=== PATIENT | female | born 1980 | race Caucasian/White ===

== ENCOUNTER 2017-03-18 20:28 | Inpatient (IN) | payer OTHER ==
[~2017-03-18] VITALS: Ht 157.5 cm; Wt 68.5 kg
[~2017-03-18 20:28] MED LIST: CIPR500T4 PO; FLUC150T41 PO; ONDA4TAB8 PO; PEG1POWD PO; PERCOCET PO; POLY17PO6 PO
--- NOTE | 2017-03-18 23:24 | ERA ---
ER Documentation Chief Complaint Date/Time DATE: 03/18/17 TIME: 23:23 Chief Complaint abdominal pain HPI The patient is a 36-year-old female, presenting with chronic bloody stool for more than 2 months, bloody stool for 2 days, associated with dysuria for 2 days. She had history of cervical cancer and treated with hysterectomy on May 2016. She is saw her oncologist 10 days ago and was diagnosed with recurrent cancer and sees is awaiting further evaluation including radiation therapy. She denies fever, chills, neck pain, chest pain, diarrhea, constipation. She does not smoke nor drink Past medical history: History of cervical cancer Past surgical history: Hysterectomy and ROS All systems reviewed and are negative except as per history of present illness. Medications Home Meds Reported Medications Ibuprofen* (Advil*) 200 Mg Capsule, 200 MG PO Q6H Y for PAIN, CAP 03/19/17 Discontinued Reported Medications Ciprofloxacin Hcl* (Ciprofloxacin Hcl*) 500 Mg Tablet, 500 MG PO BID, #14 TAB PER PT STARTED 05-07-16 05/07/16 Oxycodone Hcl/Acetaminophen (Percocet) 1 Tab Tab, 1 TAB PO DAILY for SEVERE PAIN LEVEL 7-10, TAB 05/07/16 Discontinued Scripts Ondansetron Hcl* (Zofran*) 4 Mg Tablet, 4 MG PO Q8H Y for NAUSEA AND/OR VOMITING , #30 TAB Prov:MOHINDER SANON MD 05/09/16 Peg 3350/Na Sulf,Bicarb,Cl/KCl (Golytely Packet) 1 Each Powd.pack, 1 EACH PO DAILY for CONSTIPATION, #1 BOX Prov:MOHINDER SANON MD 05/09/16 Polyethylene Glycol* (Miralax*) 17 Gm Powd.pack, 17 GM PO DAILY for CONSTIPATION , #7 Prov:MOHINDER SANON MD 05/09/16 Fluconazole* (Fluconazole*) 150 Mg Tablet, 150 MG PO DAILY, #2 TAB Prov:CAROL KEBEDE PA-C 03/04/15 Allergies Allergies: Coded Allergies: No Known Allergies (Unverified Allergy, Unknown, 03/19/17) PMhx/Soc History of Surgery: Yes (c/section x2, TUMMY TUCK 2009, HYSTERECTOMY 05/2016) Anesthesia Reaction: No Hx Neurological Disorder: No Hx Respiratory Disorders: No Hx Cardiac Disorders: No Hx Psychiatric Problems: No Hx Miscellaneous Medical Probl: No Hx Alcohol Use: No Hx Substance Use: No Hx Tobacco Use: No Physical Exam Vitals Vital Signs Date Time Temp Pulse Resp B/P Pulse Ox O2 Delivery O2 Flow Rate FiO2 03/19/17 05:04 81 16 108/69 98 Room Air 03/19/17 03:00 89 20 97/73 97 Room Air 03/19/17 02:00 84 21 90/64 99 Room Air 03/19/17 01:00 84 22 92/76 100 Room Air 03/19/17 00:00 88 20 93/52 99 Room Air 03/18/17 23:24 98.4 92 18 96/66 100 Room Air 03/18/17 20:40 98.4 110 18 105/64 96 Physical Exam Const: No acute distress.Dehydrated Head: Atraumatic. Eyes: Normal Conjunctiva. ENT: Normal External Ears, Nose and Mouth. Neck: Full range of motion. No meningismus. Resp: Clear to auscultation bilaterally. Cardio: Regular Tachycardic Abd: Soft, non distended, normal bowel sounds, Diffuse abdominal tenderness, no rigidity, rebound, CVA tenderness Skin: No petechiae or rashes. Back: No midline or flank tenderness. Ext: No cyanosis, or edema. Neur: Awake and alert. No focal deficit Psych: Normal Mood and Affect. Result Diagram: 03/18/17 2335 03/18/17 2335 Results 24 hrs Laboratory Tests Test 03/18/17 23:35 03/19/17 00:21 White Blood Count 18.510^3/ul Red Blood Count 3.6210^6/ul Hemoglobin 10.3g/dl Hematocrit 32.3% Mean Corpuscular Volume 89.2fl Mean Corpuscular Hemoglobin 28.5pg Mean Corpuscular Hemoglobin Concent 31.9g/dl Red Cell Distribution Width 12.9% Platelet Count 97171^3/UL Mean Platelet Volume 9.4fl Neutrophils % 79.3% Lymphocytes % 11.8% Monocytes % 8.0% Eosinophils % 0.2% Basophils % 0.2% Nucleated Red Blood Cells % 0.0/100WBC Neutrophils # 14.610^3/ul Lymphocytes # 2.210^3/ul Monocytes # 1.510^3/ul Eosinophils # 0.010^3/ul Basophils # 0.010^3/ul Nucleated Red Blood Cells # 0.010^3/ul Prothrombin Time 15.7Sec Prothrombin Time Ratio 1.2 INR International Normalized Ratio 1.24 Activated Partial Thromboplast Time 34.1Sec Sodium Level 134mmol/L Potassium Level 3.3mmol/L Chloride Level 98mmol/L Carbon Dioxide Level 28mmol/L Anion Gap 11 Blood Urea Nitrogen 14mg/dl Creatinine 1.38mg/dl Glucose Level 156mg/dl Lactic Acid Level 1.4mmol/L Calcium Level 9.5mg/dl Total Bilirubin 0.7mg/dl Direct Bilirubin 0.00mg/dl Indirect Bilirubin 0.7mg/dl Aspartate Amino Transf (AST/SGOT) 22IU/L Alanine Aminotransferase (ALT/SGPT) 18IU/L Alkaline Phosphatase 71IU/L Total Protein 8.3g/dl Albumin 3.9g/dl Globulin 4.40g/dl Albumin/Globulin Ratio 0.88 Lipase 66U/L Bedside Urine pH (LAB) 5.5 Bedside Urine Protein (LAB) 3+ Bedside Urine Glucose (UA) Negative Bedside Urine Ketones (LAB) Negative Bedside Urine Blood 2+ Bedside Urine Nitrite (LAB) Negative Bedside Urine Leukocyte Esterase (L Negative Current Medications Medications (Trade) Dose Ordered Sig/Yuli Route PRN Reason Start Time Stop Time Status Last Admin Dose Admin Sodium Chloride (NS) 2,170 ml BOLUS OVER 2 HOURS STAT IV* 03/18/17 23:46 03/18/17 23:49 DC 03/19/17 00:02 Morphine Sulfate (morphine) 2 mg ONCE ONCE IV 03/19/17 00:00 03/19/17 00:01 DC 03/19/17 00:01 Ondansetron HCl (Zofran Inj) 4 mg ONCE STAT IV 03/18/17 23:46 03/18/17 23:49 DC 03/19/17 00:00 Morphine Sulfate (morphine) 2 mg ONCE ONCE IV 03/19/17 02:06 03/19/17 02:07 DC 03/19/17 02:30 Ondansetron HCl (Zofran Inj) 4 mg ONCE ONCE IV 03/19/17 02:06 03/19/17 02:07 DC 03/19/17 02:30 Potassium Chloride 20 meq 20 meq ONCE ONCE PO 03/19/17 03:26 03/19/17 03:27 DC 03/19/17 03:26 Piperacillin Sod/ Tazobactam Sod (Zosyn 3.375gm/ 100 ml (Pmx)) 100 ml @ 200 mls/hr ONCE ONCE IVPB 03/19/17 03:30 03/19/17 03:59 DC 03/19/17 03:30 Procedures/MDM [place] [address] Radiology Main Line: [phone] DIAGNOSTIC IMAGING REPORT Patient: LILI VINSON : 1980 Age: 36 Sex: F MR #: [id number] DOS: 03/18/172345 Ordering MD: SUSAN ZHAO MD Location: E/R Room/Bed: PROCEDURE: XR Chest. CLINICAL INDICATION: Possible sepsis TECHNIQUE: Single AP portable chest. COMPARISON: 16 Chest x-ray FINDINGS: The cardiomediastinal silhouette is within normal limits of size. The lungs are clear without pleural effusion or focal consolidation. No pneumothorax. The osseous structures and soft tissues are unremarkable. IMPRESSION: 1. No evidence for active cardiopulmonary disease. RPTAT:AAJJ Physician Evgeny Date Time Electronically viewed and signed by Physician Evgeny on 03/19/2017 00:20 HARVEY/ CC: SUSAN ZHAO MD [place] [address] Radiology Main Line: [phone] DIAGNOSTIC IMAGING REPORT Patient: LILI VINSON : 1980 Age: 36 Sex: F MR #: [id number] DOS: 03/18/172345 Ordering MD: SUSAN ZHAO MD Location: E/R Room/Bed: PROCEDURE: CT ABDOMEN/PELVIS WITHOUT CONTRAST CLINICAL INDICATION: 36-year-old female with abdominal pain and sepsis. TECHNIQUE: The study was performed utilizing a [employer] 64-slice CT scanner. Direct axial sections were obtained through the abdomen and pelvis without the use of intravenous contrast material. Sagittal and coronal reformations were obtained. One or more of the following dose reduction techniques were utilized: automated exposure control, adjustment of the mA and/ or kV according to patient's size or use of iterative reconstruction technique. The images were reviewed on a PACS workstation. CTD/vol = 12.6 mGy; Total Exam DLP = 725.6 mGy-cm. COMPARISON: CT abdomen/pelvis May 09, 2016. FINDINGS: There is minimal bibasilar subsegmental atelectasis. There is no evidence for significant pleural effusion. The liver has a normal size and contour without focal areas of abnormal density. No intrahepatic nor extrahepatic biliary ductal dilatation is seen. The gallbladder demonstrates no wall thickening nor pericholecystic fluid. No biliary stones are evident. The pancreas is without areas of abnormal attenuation. The spleen is identified and has a normal size without abnormal density. The adrenal glands are unremarkable. There is severe right-sided hydroureteronephrosis with markedly dilated ectatic right ureter with transition point in the distal right ureter without evidence for obstructing calculus. There is mild left-sided hydroureteronephrosis with transition point within the distal left ureter without evidence for obstructing calculus. There is a large ill-defined mass within the pelvis measuring approximately 10.2 x 9.4 x 8.6 cm. Note that the patient has had a prior hysterectomy. There is mild free fluid identified within the pelvis. The right ovary is displaced into the right lower quadrant. There appears to be a right ovarian cyst measuring approximately 1.7 x 2.0 x 2.2 cm. The urinary bladder contains urine and is displaced ventrally. There is no evidence for bowel obstruction. The rectosigmoid colon appears to be circumferentially thickened however this may be secondarily involved. The appendix is visualized and is without abnormal thickening or surrounding inflammatory reaction. The aortoiliac vessels are without aneurysmal dilatation. The osseous structures are intact. IMPRESSION: 1. Large ill-defined pelvic mass with free fluid. 2. Severe right and mild left-sided hydroureteronephrosis with markedly ectatic right ureter with obstruction in the distal ureters most likely from mass effect by the pelvic mass. 3. Right ovarian cyst. 4. Diffuse circumferential thickening of the rectosigmoid colon which may be secondarily involved. 5. No CT evidence for appendicitis. .Jose Atkins MD, Date Time Electronically viewed and signed by .Jose Atkins MD, MD on 03/19/2017 03:01 .M/ CC: SUSAN ZHAO MD EKG: Read by emergency physician Rate/Rhythm: Normal Sinus Rhythm 83 beats/min QRS, ST, T-waves: No ST elevation, no T inversion Impression: Normal EKG MEDICAL MAKING DECISION: Patient is a 36-year-old female, presenting with acute bilateral hydroureteronephrosis, acute pelvic mass most likely due to recurrent cervical cancer, acute hypokalemia, acute dehydration , acute renal sufficiency , acute hematuria, chronic hematochezia. She was treated with normal saline 30 mL/kg IV for acute dehydration, morphine 2 mg IV for pain 2 and Zofran 4 mg IV for nausea 2, potassium chloride 20 mEq p.o. and Zosyn IV empirically and Sheets catheter due to acute hydroureteronephrosis is likely due to acute recurrent pelvic mass The differential diagnoses considered include but are not limited to metastatic recurrent cervical cancer, cholelithiasis, cholecystitis, cystitis, pancreatitis , hepatitis, gastritis, peptic ulcer disease, gastric ulcer, appendicitis, diverticulitis, cholangitis, choledocholithiasis, partial small bowel obstruction, acute gastrointestinal bleeding Critical Care: Time: 35 minutes excluding all billable procedures. Treatments/Evaluations: Close monitoring and treatment of unstable vital signs, cardiorespiratory, and neurologic status, while maintaining tight balance of fluid, respiratory, and cardiac interventions.. Departure Diagnosis: Primary Impression: Hydroureteronephrosis Additional Impressions: Dehydration Pelvic mass Hypokalemia Renal insufficiency Hematochezia Hematuria Anemia Condition: Stable Comments Consultation: I discussed the patient with the on-call urologist Dr. sage at 3: 30 AM, he was made aware of the lab, the treatment, the patient condition and he accepted the consult I discussed the findings with the patient. I discussed the patient with his physician Dr. watson at 3:40 AM who was made aware of the lab, the treatment, the patient condition and my discussion with the urologist. The patient is admitted to [facility] MD Mar 18, 2017 23:24
[2017-03-18] MEDS ORDERED: SODIUM CHLORIDE 0.9% 1L BAG IV* STA (23:46)
[2017-03-18] MEDS ORDERED: ONDANSETRON 4 MG INJ IV STA (23:46)
[2017-03-19] MEDS ORDERED: morphine 2 MG INJ IV ONE
[2017-03-19] MEDS ORDERED: IBUP200C11 PO (00:03)
[2017-03-19 00:07] LABS: BASOPHILS % 0.2 % (0.0-2.0); EOSINOPHILS % 0.2 % (0.0-7.0); HEMATOCRIT 32.3 % (37.0-47.0); HEMOGLOBIN 10.3 g/dl (12.0-16.0); LYMPHOCYTES # 2.2 10^3/ul (0.8-2.9); LYMPHOCYTES % 11.8 % (15.0-51.0); MEAN CORPUSCULAR HEMOGLOBIN 28.5 pg (29.0-33.0); MEAN CORPUSCULAR HGB CONC 31.9 g/dl (32.0-37.0); MEAN CORPUSCULAR VOLUME 89.2 fl (82.0-101.0); MEAN PLATELET VOLUME 9.4 fl (7.4-10.4); MONOCYTE # 1.5 10^3/ul (0.3-0.9); NEUTROPHIL # 14.6 10^3/ul (1.6-7.5); NEUTROPHILS % 79.3 % (39.0-77.0); PLATELET COUNT 329 10^3/UL (140-415); RED BLOOD COUNT 3.62 10^6/ul (4.20-5.40); RED CELL DISTRIBUTION WIDTH 12.9 % (11.5-14.5); WHITE BLOOD COUNT 18.5 10^3/ul (4.8-10.8)
[2017-03-19 00:15] LABS: URINE BLOOD (Dip) POC 2+ (NEGATIVE)
--- NOTE | 2017-03-19 00:20 | RADRPT ---
PROCEDURE: XR Chest. CLINICAL INDICATION: Possible sepsis TECHNIQUE: Single AP portable chest. COMPARISON: 16 Chest x-ray FINDINGS: The cardiomediastinal silhouette is within normal limits of size. The lungs are clear without pleur al effusion or focal consolidation. No pneumothorax. The osseous structures and soft tissues are unr emarkable. IMPRESSION: 1. No evidence for active cardiopulmonary disease. RPTAT:AAJJ Marguerite Varma Physician Date Time Electronically viewed and signed by Marguerite Varma Physician on 03/19/2017 00:20 HARVEY/
[2017-03-19 00:27] LABS: ALBUMIN 3.9 g/dl (3.3-4.9); ALBUMIN/GLOBULIN RATIO 0.88; BILIRUBIN,INDIRECT 0.7 mg/dl (0-1.1); BILIRUBIN,TOTAL 0.7 mg/dl (0.2-1.3); CALCIUM 9.5 mg/dl (8.4-10.2); CREATININE 1.38 mg/dl (0.44-1.00); INR 1.24; PARTIAL THROMBOPLASTIN TIME 34.1 Sec (25.0-35.0); POTASSIUM 3.3 mmol/L (3.5-5.1); PROTIME 15.7 Sec (12.2-14.2); PT RATIO 1.2; TOTAL PROTEIN 8.3 g/dl (6.1-8.1)
[2017-03-19] MEDS ORDERED: morphine 4 MG/ML VIAL IV ONE (02:06)
[2017-03-19] MEDS ORDERED: ONDANSETRON 4 MG INJ IV ONE (02:06)
--- NOTE | 2017-03-19 03:01 | RADRPT ---
PROCEDURE: CT ABDOMEN/PELVIS WITHOUT CONTRAST CLINICAL INDICATION: 36-year-old female with abdominal pain and sepsis. TECHNIQUE: The study was performed utilizing a GE E[employer] E[employer]ed VCT 64-slice CT scanner. Direct axia l sections were obtained through the abdomen and pelvis without the use of intravenous contrast mate rial. Sagittal and coronal reformations were obtained. One or more of the following dose reduction t echniques were utilized: automated exposure control, adjustment of the mA and/or kV according to pat ient's size or use of iterative reconstruction technique. The images were reviewed on a PACS workst [employer]. CTD/vol = 12.6 mGy; Total Exam DLP = 725.6 mGy-cm. COMPARISON: CT abdomen/pelvis May 09, 2016. FINDINGS: There is minimal bibasilar subsegmental atelectasis. There is no evidence for significant pleural ef fusion. The liver has a normal size and contour without focal areas of abnormal density. No intrahe patic nor extrahepatic biliary ductal dilatation is seen. The gallbladder demonstrates no wall thick ening nor pericholecystic fluid. No biliary stones are evident. The pancreas is without areas of abn ormal attenuation. The spleen is identified and has a normal size without abnormal density. The adr enal glands are unremarkable. There is severe right-sided hydroureteronephrosis with markedly dilate d ectatic right ureter with transition point in the distal right ureter without evidence for obstruc ting calculus. There is mild left-sided hydroureteronephrosis with transition point within the dista l left ureter without evidence for obstructing calculus. There is a large ill-defined mass within th e pelvis measuring approximately 10.2 x 9.4 x 8.6 cm. Note that the patient has had a prior hysterectomy. There is mild free fluid identified within the pelvis. The right ovary is displaced in to the right lower quadrant. There appears to be a right ovarian cyst measuring approximately 1.7 x 2.0 x 2.2 cm. The urinary bladder contains urine and is displaced ventrally. There is no evidence fo r bowel obstruction. The rectosigmoid colon appears to be circumferentially thickened however this m ay be secondarily involved. The appendix is visualized and is without abnormal thickening or surrou nding inflammatory reaction. The aortoiliac vessels are without aneurysmal dilatation. The osseous s tructures are intact. IMPRESSION: 1. Large ill-defined pelvic mass with free fluid. 2. Severe right and mild left-sided hydroureteronephrosis with markedly ectatic right ureter with o bstruction in the distal ureters most likely from mass effect by the pelvic mass. 3. Right ovarian cyst. 4. Diffuse circumferential thickening of the rectosigmoid colon which may be secondarily involved. 5. No CT evidence for appendicitis. .Jose Atkins MD, MD Date Time Electronically viewed and signed by .Jose Atkins MD, MD on 03/19/2017 03:01 .Merry/
[2017-03-19] MEDS ORDERED: POTASSIUM CHLORIDE (SR) 20 MEQ TAB PO ONE (03:26)
[2017-03-19] MEDS ORDERED: PIPER-TAZO 3.375 GM IV (PMX) 100 ML IVPB ONE (03:30)
[2017-03-19] MEDS ORDERED: HYDROmorphONE 1 MG/ML SYG IV STA (09:49)
[2017-03-19 13:00] VITALS: TEMP 98.4
[2017-03-19 14:15] VITALS: BP 100/59; PULSE 68; RESP 18
[2017-03-19] MEDS ORDERED: ACETAMINOPHEN 650 MG SUPP PR PRN (15:30)
[2017-03-19] MEDS ORDERED: MAGNESIUM HYDROXIDE 30ML CUP PO PRN (15:30)
[2017-03-19] MEDS ORDERED: ACETAMINOPHEN 325 MG TAB PO PRN (15:30)
[2017-03-19] MEDS ORDERED: BISACODYL (EC) 5 MG TAB PO PRN (15:30)
[2017-03-19] MEDS ORDERED: ONDANSETRON 4 MG INJ IV PRN (15:30)
[2017-03-19] MEDS ORDERED: NACL 0.9% 3 ML SYG IV SCH (15:30)
[2017-03-19] MEDS ORDERED: IBUPROFEN 200 MG TAB PO PRN (15:30)
[2017-03-19] MEDS ORDERED: DOCUSATE SODIUM 100 MG CAP PO PRN (15:30)
[2017-03-19] MEDS ORDERED: ZOLPIDEM 5 MG TAB PO PRN (15:30)
--- NOTE | 2017-03-19 15:37 | QN ---
Documentation Comment [id number] KIMBERLY PARK MD Mar 19, 2017 15:37
[2017-03-19] MEDS: DEXTROSE 5%-0.45% NACL 1,000 ML IV SCH (15:41)
[2017-03-19] MEDS: CEFTRIAXONE 1 GM/50 ML (PMX) 50 ML IVPB SCH (17:42)
[2017-03-19 19:02] VITALS: Ht 157.5 cm; Wt 68.5 kg
[2017-03-19 19:48] VITALS: BP 99/61; PULSE 81; RESP 18
--- NOTE | 2017-03-19 22:29 | HP ---
DATE OF ADMISSION: 03/19/2017 HISTORY OF PRESENT ILLNESS: Michelle Gross is a 36-year-old female with history of cervical cancer status post surgery in the past, now presents to this hospital complaining of difficulty passing urine and some burning and pain. Patient's blood pressure 130/83 in the ER. WBC 18.5, hematocrit 32.3. Sodium 134, potassium 3.3, creatinine 1.38. Patient had urine 2+. Chest x-ray done in the ER shows no evidence of active cardiopulmonary disease. CT of the abdomen and pelvis shows a large ill-defined pelvic mass with free fluid. Severe right and mild left-sided hydronephrosis with markedly atretic right ureter with obstruction in the distal ureter most likely from mass effect by the pelvic mass. Right ovarian cyst. Diffuse circumferential thickening of the rectosigmoid which may be secondarily involved. No CT evidence for appendicitis. PAST MEDICAL HISTORY: Positive for cervical CA status post surgery. PAST SURGICAL HISTORY: Status post surgery. ALLERGIES: NEGATIVE. FAMILY HISTORY: Negative. SOCIAL HISTORY: Negative. MEDICATIONS: Ibuprofen. REVIEW OF SYSTEMS: HEENT: Unremarkable. RESPIRATORY: Unremarkable. CARDIOVASCULAR: Unremarkable. ABDOMEN: As mentioned, lower abdominal pain. No nausea, vomiting. No diarrhea. No hematemesis, melena. EXTREMITIES: No swelling. DEPUTY PROGRAM MANAGER: As mentioned above. No vaginal discharge. PHYSICAL EXAMINATION: GENERAL: Patient is awake, alert. VITAL SIGNS: Pulse 90, blood pressure 130/83. HEENT: Head is atraumatic, normocephalic. Pupils equal, reactive to light. NECK: Supple. There is no JVD. LUNGS: Clear. CARDIAC: S1, S2 normal. ABDOMEN: Soft. Bowel sounds positive. Tenderness in the lower abdominal area noted on deep palpation. EXTREMITIES: No cyanosis, clubbing, edema. LABORATORY DATA: As mentioned above. IMPRESSION: 1. Patient has pelvic mass. 2. Leukocytosis. 3. Right and mild left-sided hydroureteronephrosis. 4. Hypokalemia. 5. Acute kidney injury. 6. Hyponatremia. 7. Anemia. PLAN: DEPUTY PROGRAM MANAGER consultation, urology consultation. IV fluids, PPI, pain medication, and DVT prophylaxis, antibiotics empiric, potassium supplementation. Patient's pain medication orders were done. Dictated By: Guido Fregoso MD /[email or web address] /Document#: [id number]
[2017-03-19] MEDS: morphine 2 MG INJ IV PRN (23:26)
[2017-03-20 02:32] VITALS: BP 90/96; RESP 20
[2017-03-20] MEDS: DEXTROSE 5%-0.45% NACL 1,000 ML IV SCH (05:51)
[2017-03-20] MEDS ORDERED: PANTOPRAZOLE 40 MG INJ IV SCH (06:00)
[2017-03-20 06:17] LABS: BASOPHILS % 0.2 % (0.0-2.0); EOSINOPHILS # 0.3 10^3/ul (0.0-0.5); EOSINOPHILS % 2.6 % (0.0-7.0); HEMATOCRIT 27.7 % (37.0-47.0); HEMOGLOBIN 8.8 g/dl (12.0-16.0); LYMPHOCYTES # 2.2 10^3/ul (0.8-2.9); LYMPHOCYTES % 17.4 % (15.0-51.0); MEAN CORPUSCULAR HEMOGLOBIN 28.8 pg (29.0-33.0); MEAN CORPUSCULAR HGB CONC 31.8 g/dl (32.0-37.0); MEAN CORPUSCULAR VOLUME 90.5 fl (82.0-101.0); MEAN PLATELET VOLUME 9.5 fl (7.4-10.4); NEUTROPHIL # 9.2 10^3/ul (1.6-7.5); NEUTROPHILS % 71.3 % (39.0-77.0); PLATELET COUNT 321 10^3/UL (140-415); RED BLOOD COUNT 3.06 10^6/ul (4.20-5.40); WHITE BLOOD COUNT 12.9 10^3/ul (4.8-10.8)
[2017-03-20 06:46] LABS: ALBUMIN 3.2 g/dl (3.3-4.9); ALBUMIN/GLOBULIN RATIO 0.78; BILIRUBIN,INDIRECT 0.3 mg/dl (0-1.1); BILIRUBIN,TOTAL 0.3 mg/dl (0.2-1.3); CALCIUM 8.9 mg/dl (8.4-10.2); CREATININE 1.24 mg/dl (0.44-1.00); POTASSIUM 3.8 mmol/L (3.5-5.1); TOTAL PROTEIN 7.3 g/dl (6.1-8.1)
[2017-03-20 07:25] VITALS: BP 105/64; RESP 20
--- NOTE | 2017-03-20 08:32 | QN ---
Documentation Comment Patient is a 36 yo with history of cervical cancer s/p hysterectomy on May 2016. She was seen by her oncologist 10 days ago and was diagnosed with recurrent cancer and awaiting further evaluation by Farm Technician- Oncologist. ROCEDURE: CT ABDOMEN/PELVIS WITHOUT CONTRAST CLINICAL INDICATION: 36-year-old female with abdominal pain and sepsis. TECHNIQUE: The study was performed utilizing a GE [employer]ed VCT 64-slice CT scanner. Direct axial sections were obtained through the abdomen and pelvis without the use of intravenous contrast material. Sagittal and coronal reformations were obtained. One or more of the following dose reduction techniques were utilized: automated exposure control, adjustment of the mA and/ or kV according to patient's size or use of iterative reconstruction technique. The images were reviewed on a PACS workstation. CTD/vol = 12.6 mGy; Total Exam DLP = 725.6 mGy-cm. COMPARISON: CT abdomen/pelvis May 09, 2016. FINDINGS: There is minimal bibasilar subsegmental atelectasis. There is no evidence for significant pleural effusion. The liver has a normal size and contour without focal areas of abnormal density. No intrahepatic nor extrahepatic biliary ductal dilatation is seen. The gallbladder demonstrates no wall thickening nor pericholecystic fluid. No biliary stones are evident. The pancreas is without areas of abnormal attenuation. The spleen is identified and has a normal size without abnormal density. The adrenal glands are unremarkable. There is severe right-sided hydroureteronephrosis with markedly dilated ectatic right ureter with transition point in the distal right ureter without evidence for obstructing calculus. There is mild left-sided hydroureteronephrosis with transition point within the distal left ureter without evidence for obstructing calculus. There is a large ill-defined mass within the pelvis measuring approximately 10.2 x 9.4 x 8.6 cm. Note that the patient has had a prior hysterectomy. There is mild free fluid identified within the pelvis. The right ovary is displaced into the right lower quadrant. There appears to be a right ovarian cyst measuring approximately 1.7 x 2.0 x 2.2 cm. The urinary bladder contains urine and is displaced ventrally. There is no evidence for bowel obstruction. The rectosigmoid colon appears to be circumferentially thickened however this may be secondarily involved. The appendix is visualized and is without abnormal thickening or surrounding inflammatory reaction. The aortoiliac vessels are without aneurysmal dilatation. The osseous structures are intact. IMPRESSION: 1. Large ill-defined pelvic mass with free fluid. 2. Severe right and mild left-sided hydroureteronephrosis with markedly ectatic right ureter with obstruction in the distal ureters most likely from mass effect by the pelvic mass. 3. Right ovarian cyst. 4. Diffuse circumferential thickening of the rectosigmoid colon which may be secondarily involved. 5. No CT evidence for appendicitis. .Jose Atkins MD, MD Date Time Electronically viewed and signed by .Jose Atkins MD, MD on 03/19/2017 03:01 .M/ CC: SUSAN ZHAO MD, BAHAREH MD Mar 20, 2017 08:32 NAVJOT LOVE MD Mar 20, 2017 08:32
--- NOTE | 2017-03-20 10:52 | CONS ---
Date/Time of Note Date/Time of Note DATE: 03/20/17 TIME: 10:44 Consultation Date/Type/Reason Admit Date/Time Mar 19, 2017 at 03:32 Reason for Consultation Bilateral hydronephrosis She has bilateral hudro from recurrent Ca She will need bilateral stent placement if she is symptomatic or if there is need for improved creat for chemo Social History Smoking Status: Never smoker Exam/Review of Systems Vital Signs Vitals Vital Signs Date Time Temp Pulse Resp B/P Pulse Ox O2 Delivery O2 Flow Rate FiO2 03/20/17 07:25 99.2 88 20 105/64 95 03/19/17 19:48 Room Air Intake and Output 03/19/17 03/19/17 03/20/17 15:00 23:00 07:00 Intake Total 960 ml 780 ml Balance 960 ml 780 ml Results Result Diagram: 03/20/17 0509 03/20/17 0509 Results 24 hrs Laboratory Tests Test 03/20/17 05:09 White Blood Count 12.9 #H Red Blood Count 3.06 L Hemoglobin 8.8 L Hematocrit 27.7 L Mean Corpuscular Volume 90.5 Mean Corpuscular Hemoglobin 28.8 L Mean Corpuscular Hemoglobin Concent 31.8 L Red Cell Distribution Width 13.0 Platelet Count 321 Mean Platelet Volume 9.5 Neutrophils % 71.3 Lymphocytes % 17.4 Monocytes % 8.0 Eosinophils % 2.6 Basophils % 0.2 Nucleated Red Blood Cells % 0.0 Neutrophils # 9.2 H Lymphocytes # 2.2 Monocytes # 1.0 H Eosinophils # 0.3 Basophils # 0.0 Nucleated Red Blood Cells # 0.0 Sodium Level 137 Potassium Level 3.8 Chloride Level 106 Carbon Dioxide Level 28 Anion Gap 7 L Blood Urea Nitrogen 9 Creatinine 1.24 H Glucose Level 104 # Calcium Level 8.9 Total Bilirubin 0.3 Direct Bilirubin 0.00 Indirect Bilirubin 0.3 Aspartate Amino Transf (AST/SGOT) 21 Alanine Aminotransferase (ALT/SGPT) 21 Alkaline Phosphatase 75 Total Protein 7.3 # Albumin 3.2 L Globulin 4.10 H Albumin/Globulin Ratio 0.78 Medications Medications Current Medications Ibuprofen 200 mg 200 mg Q6H PRN PO PAIN; Start 03/19/17 at 15:30 Dextrose/Sodium Chloride (D5-1/2ns) 1,000 ml @ 60 mls/hr [id number] IV Last administered on 03/20/17 05:51; Admin Dose 60 MLS/HR; Start 03/19/17 at 15:19 Ondansetron HCl (Zofran Inj) 4 mg Q6H PRN IV NAUSEA AND/OR VOMITING; Start at 15:30 Acetaminophen (Tylenol Tab) 650 mg Q6H PRN PO PAIN LEVEL 1-3 OR FEVER Last administered on 03/19/17 17:49; Admin Dose 650 MG; Start 03/19/17 at 15:30 Acetaminophen (Tylenol Supp) 650 mg Q6H PRN [place] PAIN LEVEL 1-3 OR FEVER; Start 03/19/17 at 15:30 Morphine Sulfate (morphine) 2 mg Q4H PRN IV SEVERE PAIN LEVEL 7-10 Last administered on 03/19/17 23:26; Admin Dose 2 MG; Start 03/19/17 at 15:30 Docusate Sodium (Colace) 100 mg Q12H PRN PO CONSTIPATION; Start 03/19/17 at 15: 30 Magnesium Hydroxide (Milk Of Mag) 30 ml DAILY PRN PO CONSTIPATION; Start at 15:30 Bisacodyl (Dulcolax) 5 mg DAILY PRN PO CONSTIPATION; Start 03/19/17 at 15:30 Zolpidem Tartrate (Ambien) 5 mg QHS PRN PO SLEEP; Start 03/19/17 at 15:30 Pantoprazole 40 mg 40 mg DAILY@06 IV Last administered on 03/20/17 05:46; Admin Dose 40 MG; Start 03/20/17 at 06:00 Ceftriaxone Sodium (Rocephin) 50 ml @ 100 mls/hr Q24H IVPB Last administered on 03/19/17 17:42; Admin Dose 100 MLS/HR; Start 03/19/17 at 16:00 MEGAN GUTIERREZ MD Mar 20, 2017 10:52
[2017-03-20 13:21] VITALS: BP 104/67; RESP 20
--- NOTE | 2017-03-20 14:14 | PN ---
Date/Time of Note Date/Time of Note DATE: 03/20/17 TIME: 14:11 Assessment/Plan VTE Prophylaxis VTE Prophylaxis Intervention: ambulation Lines/Catheters IV [facility] Type (from [facility]): Peripheral IV Urinary Cath still in place: Yes Reason Cath still needed: urinary retention Assessment/Plan Chief Complaint/Hosp Course 1. Patient has pelvic mass. 2. Leukocytosis. 3. Right and mild left-sided hydroureteronephrosis. 4. Hypokalemia. 5. Acute kidney injury. 6. Hyponatremia. 7. Anemia. 8. Abdominal pain 9. CT scan is positive for :1). Large ill-defined pelvic mass with free fluid. 2). Severe right and mild left-sided hydroureteronephrosis with markedly ectatic right ureter with obstruction in the distal ureters most likely from mass effect by the pelvic mass. 3). Right ovarian cyst. 4). Diffuse circumferential thickening of the rectosigmoid colon which may be secondarily involved. 5). No CT evidence for appendicitis. Problems: Assessment/Plan 1. Hematology oncology dr Hoang is on case 2. Urology saw the pt, pt might need stents 3. continue IV fluids 4. continue pain control Subjective 24 Hr Interval Summary Respiratory: no complaints Gastrointestinal: blood (in stool), diarrhea, pain (4/10 all the time) Skin: no complaints Exam/Review of Systems Vital Signs Vitals Vital Signs Date Time Temp Pulse Resp B/P Pulse Ox O2 Delivery O2 Flow Rate FiO2 03/20/17 13:21 98.9 86 20 104/67 98 03/19/17 19:48 Room Air Intake and Output 03/19/17 03/19/17 03/20/17 15:00 23:00 07:00 Intake Total 960 ml 780 ml Balance 960 ml 780 ml Exam Constitutional: alert, oriented Psych: no complaints ENMT: nl external ears & nose Neck: supple Respiratory: clear to auscultation Cardiovascular: regular rate and rhythm Gastrointestinal: distended, other, rebound or guarding Genitourinary - Female: CVA tenderness (right side), other (ruiz) Neurological: SAW BOSS II-XII intact Results Result Diagram: 03/20/17 0509 03/20/17 0509 Results 24 hrs Laboratory Tests Test 03/20/17 05:09 White Blood Count 12.9 #H Red Blood Count 3.06 L Hemoglobin 8.8 L Hematocrit 27.7 L Mean Corpuscular Volume 90.5 Mean Corpuscular Hemoglobin 28.8 L Mean Corpuscular Hemoglobin Concent 31.8 L Red Cell Distribution Width 13.0 Platelet Count 321 Mean Platelet Volume 9.5 Neutrophils % 71.3 Lymphocytes % 17.4 Monocytes % 8.0 Eosinophils % 2.6 Basophils % 0.2 Nucleated Red Blood Cells % 0.0 Neutrophils # 9.2 H Lymphocytes # 2.2 Monocytes # 1.0 H Eosinophils # 0.3 Basophils # 0.0 Nucleated Red Blood Cells # 0.0 Sodium Level 137 Potassium Level 3.8 Chloride Level 106 Carbon Dioxide Level 28 Anion Gap 7 L Blood Urea Nitrogen 9 Creatinine 1.24 H Glucose Level 104 # Calcium Level 8.9 Total Bilirubin 0.3 Direct Bilirubin 0.00 Indirect Bilirubin 0.3 Aspartate Amino Transf (AST/SGOT) 21 Alanine Aminotransferase (ALT/SGPT) 21 Alkaline Phosphatase 75 Total Protein 7.3 # Albumin 3.2 L Globulin 4.10 H Albumin/Globulin Ratio 0.78 Medications Medications Current Medications Ibuprofen 200 mg 200 mg Q6H PRN PO PAIN; Start 03/19/17 at 15:30 Dextrose/Sodium Chloride (D5-1/2ns) 1,000 ml @ 60 mls/hr [id number] IV Last administered on 03/20/17 05:51; Admin Dose 60 MLS/HR; Start 03/19/17 at 15:19 Ondansetron HCl (Zofran Inj) 4 mg Q6H PRN IV NAUSEA AND/OR VOMITING; Start at 15:30 Acetaminophen (Tylenol Tab) 650 mg Q6H PRN PO PAIN LEVEL 1-3 OR FEVER Last administered on 03/19/17 17:49; Admin Dose 650 MG; Start 03/19/17 at 15:30 Acetaminophen (Tylenol Supp) 650 mg Q6H PRN [place] PAIN LEVEL 1-3 OR FEVER; Start 03/19/17 at 15:30 Morphine Sulfate (morphine) 2 mg Q4H PRN IV SEVERE PAIN LEVEL 7-10 Last administered on 03/19/17 23:26; Admin Dose 2 MG; Start 03/19/17 at 15:30 Docusate Sodium (Colace) 100 mg Q12H PRN PO CONSTIPATION; Start 03/19/17 at 15: 30 Magnesium Hydroxide (Milk Of Mag) 30 ml DAILY PRN PO CONSTIPATION; Start at 15:30 Bisacodyl (Dulcolax) 5 mg DAILY PRN PO CONSTIPATION; Start 03/19/17 at 15:30 Zolpidem Tartrate (Ambien) 5 mg QHS PRN PO SLEEP; Start 03/19/17 at 15:30 Pantoprazole 40 mg 40 mg DAILY@06 IV Last administered on 03/20/17 05:46; Admin Dose 40 MG; Start 03/20/17 at 06:00 Ceftriaxone Sodium (Rocephin) 50 ml @ 100 mls/hr Q24H IVPB Last administered on 03/19/17 17:42; Admin Dose 100 MLS/HR; Start 03/19/17 at 16:00 AZUL HINDS Mar 20, 2017 14:13
[2017-03-20 15:44] LABS: BASOPHILS % 0.3 % (0.0-2.0); EOSINOPHILS # 0.6 10^3/ul (0.0-0.5); EOSINOPHILS % 4.7 % (0.0-7.0); LYMPHOCYTES # 2.4 10^3/ul (0.8-2.9); LYMPHOCYTES % 19.4 % (15.0-51.0); MEAN CORPUSCULAR HEMOGLOBIN 28.8 pg (29.0-33.0); MEAN CORPUSCULAR HGB CONC 32.1 g/dl (32.0-37.0); MEAN CORPUSCULAR VOLUME 89.7 fl (82.0-101.0); MEAN PLATELET VOLUME 9.3 fl (7.4-10.4); MONOCYTE # 0.9 10^3/ul (0.3-0.9); MONOCYTES % 7.2 % (0.0-11.0); NEUTROPHIL # 8.2 10^3/ul (1.6-7.5); PLATELET COUNT 340 10^3/UL (140-415); RED BLOOD COUNT 3.12 10^6/ul (4.20-5.40); RED CELL DISTRIBUTION WIDTH 13.1 % (11.5-14.5); WHITE BLOOD COUNT 12.1 10^3/ul (4.8-10.8)
[2017-03-20] MEDS: CEFTRIAXONE 1 GM/50 ML (PMX) 50 ML IVPB SCH (16:27)
--- NOTE | 2017-03-20 17:25 | CONS ---
DATE OF ADMISSION: 03/19/2017 DATE OF CONSULTATION: 03/19/2017 REQUESTING PHYSICIAN: Guido Fregoso MD REASON FOR CONSULTATION: Pelvic mass. HISTORY OF PRESENT ILLNESS: A 36-year-old female with a history of cervical cancer status post surgery last year in May, comes to the hospital complaining of abdominal pain and also constipation and passing blood per rectum. In the ER, she was evaluated, found to have WBC of 18,000, hematocrit of 32, sodium of 134, and creatinine of 1.38. A CT scan of the abdomen and pelvis done, which showed large ill-defined pelvic mass with fluid and also thickening of the rectum and left-sided hydronephrosis. GI consult was called in for rectal bleeding, constipation and abnormal finding on a CAT scan. PAST MEDICAL HISTORY: Cervical cancer, status post surgery, being followed by the oncologist on a regular basis as an outpatient. ALLERGIES: NEGATIVE. FAMILY HISTORY: Negative. SOCIAL HISTORY: Negative. MEDICATIONS: Just taking ibuprofen. PHYSICAL EXAMINATION: Well-built, nourished, not in distress. VITAL SIGNS: Stable. HEENT: Unremarkable. NECK: Supple. No thyromegaly. No lymphadenopathy. HEART: No murmur, gallop, or click. LUNGS: Clear. ABDOMEN: Benign. EXTREMITIES: No edema. NEUROLOGIC: Grossly within normal limits. LABORATORY: WBC 12643, hematocrit 32. Creatinine was 1.38. CAT scan as described showed large ill-defined pelvic mass, severe right, mid left-sided hydronephrosis, ovarian cyst and diffuse circumferential thickening of the rectosigmoid colon which may be secondary to tumor which is involving. IMPRESSION: 1. Pelvic mass which is probably infiltrating the rectosigmoid colon. 2. Rectal bleeding. 3. Constipation. 4. History of cervical cancer for which she had surgery last year. 5. Anemia. 6. Leukocytosis. 7. Left-sided hydroureter. PLAN: Continue present care. Monitor WBC count closely. Patient needs DIRECT CARE COUNSELOR consult. Will monitor H and H. After DIRECT CARE COUNSELOR consult, will decide whether patient needs colonoscopy or not. Continue antibiotic. Dictated By: Kashif Stoner MD /[email or web address] /Document#: [id number] CC: Guido Fregoso MD;*EndCC*
--- NOTE | 2017-03-20 17:31 | CONS ---
DATE OF ADMISSION: 03/19/2017 DATE OF CONSULTATION: 03/20/2017 . SUBJECTIVE: Abdominal pain. Rectal bleeding is minimal. OBJECTIVE: VITAL SIGNS: Stable. ABDOMEN: Benign. LUNGS: Clear. EXTREMITIES: No edema. NEUROLOGIC: Grossly within normal limits. LABORATORY: Hematocrit dropped down to 27, WBCs down to also 12,000. Patient was evaluated by Dr. Hema Galloway, and he strongly recommended stenting of both the ureter which is being compressed by the tumor. IMPRESSION: 1. Pelvic mass. 2. Cancer of the cervix status post surgery last in May. 3. Rectal bleeding most probably from the tumor invading the rectosigmoid colon. 4. Anemia. 5. Bilateral hydro. PLAN: 1. Awaiting for the VAT TENDER consult. 2. Definitely needs stenting of both ureter as per the urologist. 3. Continue antibiotic. 4. Monitor H and H. 5. Patient will be placed on a stool softener. Dictated By: Kashif Stoner MD /[email or web address] /Document#: [id number] CC: Guido Fregoso MD;*End*
[2017-03-20] MEDS: morphine 2 MG INJ IV PRN (18:28)
[2017-03-20 19:36] VITALS: BP 105/66; RESP 18
--- NOTE | 2017-03-20 19:55 | CONS ---
DATE OF ADMISSION: 03/19/2017 DATE OF CONSULTATION: 03/19/2017 HISTORY OF PRESENT ILLNESS: This is a 36-year-old lady with a history of cervical cancer. The patient had a hysterectomy, and the consult was done because of the pelvic mass that has some effect on the ureters and the bladder. No vaginal bleeding was reported. PAST MEDICAL HISTORY: Cervical cancer. PAST SURGICAL HISTORY: Total abdominal hysterectomy and BSO. ALLERGIES: DENIES. PHYSICAL EXAMINATION: VITAL SIGNS: Stable. GENERAL: Exam normal. ABDOMEN: On exam, nontender, nondistended. GENITOURINARY: No blood in vaginal vault. No abnormality in vaginal vault. CT scan showed a large pelvic mass that was not clear. ASSESSMENT AND PLAN: 1. Given the patient's history and new findings of the pelvic mass, first, I do recommend a consult with COTTON WEIGHER/Oncology to be done. Dr. Kurtz, COTTON WEIGHER/Oncology in [facility], was informed, and he is going to see the patient. 2. Tumor markers need to be sent, including a CA-125. 3. An MRI could help to discover the new information and also may give more information about the origin of the pelvic mass. 4. If you have any questions, please contact the on- call, and we could always be reached at [phone]. Thank you very much. Dictated By: Moise Heller MD /tameka/[facility] /Document#: [id number]
--- NOTE | 2017-03-20 20:55 | CONS ---
DATE OF ADMISSION: 03/19/2017 DATE OF CONSULTATION: 03/20/2017 REASON FOR CONSULTATION: Antibiotic management. A 36-year-old female with history of cervical cancer, status post surgery in the past, who comes in with dysuria and difficulty in urinating as well as an elevated white count of 18.5. In the emergency room, her chest x-ray showed no evidence of active cardiopulmonary disease. A CT scan of the abdomen and pelvis showed a large ill defined pelvic mass with free fluid. She had severe right and mild left sided hydronephrosis with markedly atretic right ureter with obstruction in the distal ureter, most likely from mass effect. LABORATORY DATA: On admission, her white count was 18.5, H and H 10.3 and 32.3, platelet count 329,000. Today her white count was 12.1, BUN and creatinine is 9/1.24, total protein 7.3, albumin 3.2. Urine is negative for leukocyte esterase and nitrites. There is 2 plus blood in the urine. Blood cultures are negative. Chest x-ray, no evidence of acute cardiopulmonary disease. CT scan of the abdomen and pelvis is as previously noted. CONSULTANTS: Patient was seen by Dr. Hema Galloway, urology, who notes that she has bilateral hydronephrosis secondary to recurrent carcinoma. She will need bilateral stent placement if she is symptomatic. She was also seen by Dr. Stoner, who noted the pelvic mass, probably infiltrating rectal sigmoid colon. She had rectal bleeding, constipation, history of cervical cancer, for which she had surgery last year, anemia and leukocytosis. PAST SURGICAL HISTORY: As outlined. FAMILY HISTORY: Noncontributory. SOCIAL HISTORY: She does not smoke, drink, or abuse drugs. ALLERGIES: NONE TO PENICILLIN, SULFA, OR FOODS. MEDICATIONS: Per chart. REVIEW OF SYSTEMS: As per HPI. PHYSICAL EXAMINATION: GENERAL: Patient is a well-developed, well-nourished female, who is awake, responsive, in no acute distress. VITAL SIGNS: Stable. She is afebrile. SKIN: Without generalized rash. HEENT: Within normal limits. NECK: Supple. Lymph nodes nonpalpable. CHEST: Decreased breath sounds at the bases. HEART: Without murmur, rub, or gallop. ABDOMEN: Soft, nontender, without organosplenomegaly or masses. EXTREMITIES: Without cyanosis, clubbing, or edema. RECTAL/PELVIC: Deferred. NEUROLOGIC: No focal neurological abnormalities. IMPRESSION AND PLAN: The patient currently presents with hydroureter. She also had some burning on urination. Patient was started on ceftriaxone. A urine culture was done today, though she was admitted on March 18, but since she is now a patient, most likely ceftriaxone will be adequate, but we will see what the cultures show. I will dictate my findings to Dr. Fregoso, Dr. Galloway, and Dr. Stoner. Dictated By: Godwin Santos MD JD/[email or web address]/lotus /Document#: [id number]
--- NOTE | 2017-03-20 21:59 | CONS ---
Date/Time of Note Date/Time of Note DATE: 03/20/17 TIME: 21:58 Consultation Date/Type/Reason Admit Date/Time Mar 19, 2017 at 03:32 Hx of Present Illness Lorenzo Dee M.D. [facility] History and Physical Examination/ Consultation Michelle Gross Mar 20, 2017 Age: 36 : 1980 Physicians: Garbage Worker Provider Scribe: Oncologist: Referring MD History of the Present Illness: This is a 36- year old female with a history of cervical cancer, 05/20 presumadly stage IA or IB1 given that a "hysterectomy " was done but we do not know the type. Her followup was not a q3mo rigorous pelvic exam or questioning or CT and she developed pain and distension about a month ago. Current imaging shows a 10-12 cm pelvic mass, mod/severe right hydroureter and mild left ureter. Of note the rt ovary is noted but not left. Past Medical History: Surgical: hysterectomy May, 2016 Medical: None Medications: reviewed Allergies: No active allergies recorded Family History: Noncontributory Social History: Noncontributory Review of Systems: Negative except for above noted Physical Examination General: Alert. HEENT: Pupils are equal, round, reactive to light and accommodation. Neck: Supple with no masses of lymphadenopathy. Breast: Deferred due to recent examination and responsibility of primary care physician. Chest: Clear and symmetric. Heart: Normal rhythm with no murmur. Abdomen: Distended with lower abd mass, firm and mild/mod tender. No rebound. Pelvic exam:Large rounded posterior and anterior globular masses; tender and displacing the bladder base and posterior Rectal: Confirmatory with pelvic exam; there is 3-5 cm tumor free rectum but involvment cephlad. Neurological: Grossly intact Assessment: Cervical cancer by history, probably recurrent disease but given that we do not have her record of the cell type and precise surgery done; there is some chance of a second primary (ovarian from left side with uncommon histology). Plan: 1- Will contact the doctor who did her surgery 05/20 and obtain op report and path report to help determine probability of cervical cancer and whether or not we have biopsy recently. 2- If not then a biopsy is essential, unless the chances of a cervical cancer were remote. If here cervical lesion was 5mm with 1mm invasion for a squamous lesion; the risks of a 10 cm recurrence < 1 year later would be remote and be would need a bx or I would do a laparoscopy to determine. If the lesion were large with deep invasion and she did not receive RT or chemo this disease pattern can occur. 3- If the conclusion is a recurrent cervical cancer the patient indicated whe is interested in cure or living as long as possible; a) I indicated that ideally the treatment would be pelvic RT with concurrent chemo (cisplatin) and possibly additional chemo. A RT consult would be useful once I get a pathology/histology answer. b) if it is a recurrent cervical cancer and not treatable with RT I could possibly do an Exenteration. The rectum and colon could possibly be anastamosed as I have many times without a colostomy, but bladder involvement might require a permant urinary diversion which I discussed with the patient. 4- If we concluded not a recurrent cervical cancer (not likely but until information availible I'd say some possibility); surgical excision more feasible and more likely to maintain fecal and urinary continance. Lorenzo Dee M.D. Respiratory: no complaints Gastrointestinal: blood, diarrhea, pain Skin: no complaints Psychological: no complaints Social History Smoking Status: Never smoker Exam/Review of Systems Vital Signs Vitals Vital Signs Date Time Temp Pulse Resp B/P Pulse Ox O2 Delivery O2 Flow Rate FiO2 03/20/17 19:36 98.4 86 18 105/66 99 03/19/17 19:48 Room Air Intake and Output 03/19/17 03/19/17 03/20/17 15:00 23:00 07:00 Intake Total 960 ml 780 ml Balance 960 ml 780 ml Results Result Diagram: 03/20/17 1452 03/20/17 0509 Results 24 hrs Laboratory Tests Test 03/20/17 05:09 03/20/17 14:52 03/20/17 16:30 White Blood Count 12.9 #H 12.1 H Red Blood Count 3.06 L 3.12 L Hemoglobin 8.8 L 9.0 L Hematocrit 27.7 L 28.0 L Mean Corpuscular Volume 90.5 89.7 Mean Corpuscular Hemoglobin 28.8 L 28.8 L Mean Corpuscular Hemoglobin Concent 31.8 L 32.1 Red Cell Distribution Width 13.0 13.1 Platelet Count 321 340 Mean Platelet Volume 9.5 9.3 Neutrophils % 71.3 68.0 Lymphocytes % 17.4 19.4 Monocytes % 8.0 7.2 Eosinophils % 2.6 4.7 Basophils % 0.2 0.3 Nucleated Red Blood Cells % 0.0 0.0 Neutrophils # 9.2 H 8.2 H Lymphocytes # 2.2 2.4 Monocytes # 1.0 H 0.9 Eosinophils # 0.3 0.6 H Basophils # 0.0 0.0 Nucleated Red Blood Cells # 0.0 0.0 Sodium Level 137 Potassium Level 3.8 Chloride Level 106 Carbon Dioxide Level 28 Anion Gap 7 L Blood Urea Nitrogen 9 Creatinine 1.24 H Glucose Level 104 # Calcium Level 8.9 Total Bilirubin 0.3 Direct Bilirubin 0.00 Indirect Bilirubin 0.3 Aspartate Amino Transf (AST/SGOT) 21 Alanine Aminotransferase (ALT/SGPT) 21 Alkaline Phosphatase 75 Total Protein 7.3 # Albumin 3.2 L Globulin 4.10 H Albumin/Globulin Ratio 0.78 Stool Occult Blood POSITIVE Medications Medications Current Medications Ibuprofen 200 mg 200 mg Q6H PRN PO PAIN; Start 03/19/17 at 15:30 Dextrose/Sodium Chloride (D5-1/2ns) 1,000 ml @ 60 mls/hr [id number] IV Last administered on 03/20/17 05:51; Admin Dose 60 MLS/HR; Start 03/19/17 at 15:19 Ondansetron HCl (Zofran Inj) 4 mg Q6H PRN IV NAUSEA AND/OR VOMITING; Start at 15:30 Acetaminophen (Tylenol Tab) 650 mg Q6H PRN PO PAIN LEVEL 1-3 OR FEVER Last administered on 03/19/17 17:49; Admin Dose 650 MG; Start 03/19/17 at 15:30 Acetaminophen (Tylenol Supp) 650 mg Q6H PRN IN PAIN LEVEL 1-3 OR FEVER; Start 03/19/17 at 15:30 Morphine Sulfate (morphine) 2 mg Q4H PRN IV SEVERE PAIN LEVEL 7-10 Last administered on 03/20/17 18:28; Admin Dose 2 MG; Start 03/19/17 at 15:30 Docusate Sodium (Colace) 100 mg Q12H PRN PO CONSTIPATION; Start 03/19/17 at 15: 30 Magnesium Hydroxide (Milk Of Mag) 30 ml DAILY PRN PO CONSTIPATION; Start at 15:30 Bisacodyl (Dulcolax) 5 mg DAILY PRN PO CONSTIPATION; Start 03/19/17 at 15:30 Zolpidem Tartrate 5 mg 5 mg QHS PRN PO SLEEP; Start 03/19/17 at 15:30 Ceftriaxone Sodium (Rocephin) 50 ml @ 100 mls/hr Q24H IVPB Last administered on 03/20/17t 16:27; Admin Dose 100 MLS/HR; Start 03/19/17 at 16:00 Pantoprazole (Protonix Tab) 40 mg DAILY@06 PO ; Start 03/21/17 at 06:00 LORENZO DEE MD Mar 20, 2017 21:59
[2017-03-21] MEDS: DEXTROSE 5%-0.45% NACL 1,000 ML IV SCH ×3 (00:39→20:12)
[2017-03-21 02:00] VITALS: BP 103/55; RESP 20
[2017-03-21] MEDS: morphine 2 MG INJ IV PRN ×2 (02:11→20:12)
[2017-03-21] MEDS: PANTOPRAZOLE (EC) 40 MG TAB PO SCH (06:20)
[2017-03-21 07:02] LABS: CREATININE 1.09 mg/dl (0.44-1.00); POTASSIUM 3.8 mmol/L (3.5-5.1)
[2017-03-21 07:25] VITALS: BP 112/67; RESP 20
--- NOTE | 2017-03-21 12:43 | CONS ---
Date/Time of Note Date/Time of Note DATE: 03/21/17 TIME: 12:41 Assessment/Plan Assessment/Plan Additional Assessment/Plan VITAL SIGNS: Stable. ABDOMEN: Benign. LUNGS: Clear. EXTREMITIES: No edema. NEUROLOGIC: Grossly within normal limits. LABORATORY: Hematocrit dropped down to 27, WBCs down to also 12,000. Patient was evaluated by Dr. Hema Galloway, and he strongly recommended stenting of both the ureter which is being compressed by the tumor. IMPRESSION: 1. Pelvic mass. 2. Cancer of the cervix status post surgery in May 2016. 3. Rectal bleeding most probably from the tumor invading the rectosigmoid colon. 4. Anemia. 5. Bilateral hydro. PLAN: 1. Awaiting for the PREVENTION RN consult. ENTERPRISE RESOURCE ANALYST notes noted 2. Definitely needs stenting of both ureter as per the urologist. 3. Continue antibiotic. 4. Monitor H and H. 5. Patient will be placed on a stool softener. 6. Was told by her oncologist as an outpatient for radiation and chemotherapy and this information was given to be by the patient today 7. ENTERPRISE RESOURCE ANALYST oncology follow-up Consultation Date/Type/Reason Admit Date/Time Mar 19, 2017 at 03:32 Initial Consult Date 24 HR Interval Summary Constitutional: no complaints Exam/Review of Systems Vital Signs Vitals Vital Signs Date Time Temp Pulse Resp B/P Pulse Ox O2 Delivery O2 Flow Rate FiO2 03/21/17 07:25 97.6 76 20 112/67 98 03/19/17 19:48 Room Air Intake and Output 03/20/17 03/20/17 03/21/17 15:00 23:00 07:00 Intake Total 2170 ml 1690 ml Output Total 1600 ml 1250 ml Balance 570 ml 440 ml Exam Constitutional: alert, oriented, well developed Psych: nl mood/affect, no complaints Head: atraumatic, normocephalic Eyes: EOMI, PERRL, nl conjunctiva, nl lids, nl sclera ENMT: nl external ears & nose, nl lips & teeth, nl nasal mucosa & septum Neck: non-tender, supple Respiratory: clear to auscultation, normal air movement Cardiovascular: nl pulses, regular rate and rhythm Gastrointestinal: nl liver, spleen, non-tender, soft Musculoskeletal: nl extremities to inspection, nl gait and stance Extremities: normal pulses Neurological: RAYON TESTER II-XII intact, nl mental status, nl speech, nl strength Skin: nl turgor, No rash or lesions Lymph: nl lymph nodes Results Result Diagram: 03/20/17 1452 03/21/17 0506 Results 24 hrs Laboratory Tests Test 03/20/17 14:52 03/20/17 16:30 03/21/17 05:06 White Blood Count 12.1 H Red Blood Count 3.12 L Hemoglobin 9.0 L Hematocrit 28.0 L Mean Corpuscular Volume 89.7 Mean Corpuscular Hemoglobin 28.8 L Mean Corpuscular Hemoglobin Concent 32.1 Red Cell Distribution Width 13.1 Platelet Count 340 Mean Platelet Volume 9.3 Neutrophils % 68.0 Lymphocytes % 19.4 Monocytes % 7.2 Eosinophils % 4.7 Basophils % 0.3 Nucleated Red Blood Cells % 0.0 Neutrophils # 8.2 H Lymphocytes # 2.4 Monocytes # 0.9 Eosinophils # 0.6 H Basophils # 0.0 Nucleated Red Blood Cells # 0.0 Stool Occult Blood POSITIVE Sodium Level 140 Potassium Level 3.8 Chloride Level 108 Carbon Dioxide Level 26 Anion Gap 10 Blood Urea Nitrogen 5 L Creatinine 1.09 H Glucose Level 99 Calcium Level 9.0 Medications Medications Current Medications Ibuprofen 200 mg 200 mg Q6H PRN PO PAIN; Start 03/19/17 at 15:30 Dextrose/Sodium Chloride (D5-1/2ns) 1,000 ml @ 60 mls/hr [id number] IV Last administered on 03/21/17 02:12; Admin Dose 60 MLS/HR; Start 03/19/17 at 15:19 Ondansetron HCl (Zofran Inj) 4 mg Q6H PRN IV NAUSEA AND/OR VOMITING; Start at 15:30 Acetaminophen (Tylenol Tab) 650 mg Q6H PRN PO PAIN LEVEL 1-3 OR FEVER Last administered on 03/19/17 17:49; Admin Dose 650 MG; Start 03/19/17 at 15:30 Acetaminophen (Tylenol Supp) 650 mg Q6H PRN [place] PAIN LEVEL 1-3 OR FEVER; Start 03/19/17 at 15:30 Morphine Sulfate (morphine) 2 mg Q4H PRN IV SEVERE PAIN LEVEL 7-10 Last administered on 03/21/17 02:11; Admin Dose 2 MG; Start 03/19/17 at 15:30 Docusate Sodium (Colace) 100 mg Q12H PRN PO CONSTIPATION; Start 03/19/17 at 15: 30 Magnesium Hydroxide (Milk Of Mag) 30 ml DAILY PRN PO CONSTIPATION; Start at 15:30 Bisacodyl (Dulcolax) 5 mg DAILY PRN PO CONSTIPATION; Start 03/19/17 at 15:30 Zolpidem Tartrate 5 mg 5 mg QHS PRN PO SLEEP; Start 03/19/17 at 15:30 Ceftriaxone Sodium (Rocephin) 50 ml @ 100 mls/hr Q24H IVPB Last administered on 03/20/17 16:27; Admin Dose 100 MLS/HR; Start 03/19/17 at 16:00 Pantoprazole (Protonix Tab) 40 mg DAILY@06 PO Last administered on 03/21/17 06 :20; Admin Dose 40 MG; Start 03/21/17 at 06:00 BRITTNI PICKARD MD Mar 21, 2017 12:43
[2017-03-21 13:19] VITALS: BP 110/68; RESP 20
--- NOTE | 2017-03-21 13:41 | CONS ---
Date/Time of Note Date/Time of Note DATE: 03/21/17 TIME: 13:35 Assessment/Plan Assessment/Plan Chief Complaint/Hosp Course Lorenzo Dee M.D. [facility] History and Physical Examination/ Consultation Michelle Gross Mar 20, 2017 Age: 36 : 1980 Physicians: Corporate Giving Manager Rn Or Lpn: Oncologist: Referring MD History of the Present Illness: This is a 36- year old female with a history of cervical cancer, 05/20 presumadly stage IA or IB1 given that a "hysterectomy " was done but we do not know the type. Her followup was not a q3mo rigorous pelvic exam or questioning or CT and she developed pain and distension about a month ago. Current imaging shows a 10-12 cm pelvic mass, mod/severe right hydroureter and mild left ureter. Of note the rt ovary is noted but not left. Past Medical History: Surgical: hysterectomy May, 2016 Medical: None Medications: reviewed Allergies: No active allergies recorded Family History: Noncontributory Social History: Noncontributory Review of Systems: Negative except for above noted Physical Examination General: Alert. HEENT: Pupils are equal, round, reactive to light and accommodation. Neck: Supple with no masses of lymphadenopathy. Breast: Deferred due to recent examination and responsibility of primary care physician. Chest: Clear and symmetric. Heart: Normal rhythm with no murmur. Abdomen: Distended with lower abd mass, firm and mild/mod tender. No rebound. Pelvic exam:Large rounded posterior and anterior globular masses; tender and displacing the bladder base and posterior Rectal: Confirmatory with pelvic exam; there is 3-5 cm tumor free rectum but involvment cephlad. Neurological: Grossly intact Assessment: Cervical cancer by history, probably recurrent disease but given that we do not have her record of the cell type and precise surgery done; there is some chance of a second primary (ovarian from left side with uncommon histology). Plan: 1- Will contact the doctor who did her surgery 05/20 and obtain op report and path report to help determine probability of cervical cancer and whether or not we have biopsy recently. 2- If not then a biopsy is essential, unless the chances of a cervical cancer were remote. If here cervical lesion was 5mm with 1mm invasion for a squamous lesion; the risks of a 10 cm recurrence < 1 year later would be remote and be would need a bx or I would do a laparoscopy to determine. If the lesion were large with deep invasion and she did not receive RT or chemo this disease pattern can occur. 3- If the conclusion is a recurrent cervical cancer the patient indicated whe is interested in cure or living as long as possible; a) I indicated that ideally the treatment would be pelvic RT with concurrent chemo (cisplatin) and possibly additional chemo. A RT consult would be useful once I get a pathology/histology answer. b) if it is a recurrent cervical cancer and not treatable with RT I could possibly do an Exenteration. The rectum and colon could possibly be anastamosed as I have many times without a colostomy, but bladder involvement might require a permant urinary diversion which I discussed with the patient. 4- If we concluded not a recurrent cervical cancer (not likely but until information availible I'd say some possibility); surgical excision more feasible and more likely to maintain fecal and urinary continance. Lorenzo Dee M.D. Problems: Consultation Date/Type/Reason Admit Date/Time Mar 19, 2017 at 03:32 Initial Consult Date 24 HR Interval Summary Free Text/Dictation Patient overall doing about the same. Attempted to discuss with [facility] who did her surgery 10 months ago but not available. Will attempt again Wednesday. Sorto issue is to confirm recurrent cervical cancer and if so determine if she can be treated with RT; in which case ureteral stenting important. versus Recurrent cervical cancer to be managed surgically (less likely) or not a recurrent cervical but instead other lesion to be removed (stenting not needed for either. Continue current medical rx. Exam/Review of Systems Vital Signs Vitals Vital Signs Date Time Temp Pulse Resp B/P Pulse Ox O2 Delivery O2 Flow Rate FiO2 03/21/17 13:19 98.1 83 20 110/68 98 03/19/17 19:48 Room Air Intake and Output 03/20/17 03/20/17 03/21/17 15:00 23:00 07:00 Intake Total 2170 ml 1690 ml Output Total 1600 ml 1250 ml Balance 570 ml 440 ml Results Result Diagram: 03/20/17 1452 03/21/17 0506 Results 24 hrs Laboratory Tests Test 03/20/17 14:52 03/20/17 16:30 03/21/17 05:06 White Blood Count 12.1 H Red Blood Count 3.12 L Hemoglobin 9.0 L Hematocrit 28.0 L Mean Corpuscular Volume 89.7 Mean Corpuscular Hemoglobin 28.8 L Mean Corpuscular Hemoglobin Concent 32.1 Red Cell Distribution Width 13.1 Platelet Count 340 Mean Platelet Volume 9.3 Neutrophils % 68.0 Lymphocytes % 19.4 Monocytes % 7.2 Eosinophils % 4.7 Basophils % 0.3 Nucleated Red Blood Cells % 0.0 Neutrophils # 8.2 H Lymphocytes # 2.4 Monocytes # 0.9 Eosinophils # 0.6 H Basophils # 0.0 Nucleated Red Blood Cells # 0.0 Stool Occult Blood POSITIVE Sodium Level 140 Potassium Level 3.8 Chloride Level 108 Carbon Dioxide Level 26 Anion Gap 10 Blood Urea Nitrogen 5 L Creatinine 1.09 H Glucose Level 99 Calcium Level 9.0 Medications Medications Current Medications Ibuprofen 200 mg 200 mg Q6H PRN PO PAIN; Start 03/19/17 at 15:30 Dextrose/Sodium Chloride (D5-1/2ns) 1,000 ml @ 60 mls/hr [id number] IV Last administered on 03/21/17 02:12; Admin Dose 60 MLS/HR; Start 03/19/17 at 15:19 Ondansetron HCl (Zofran Inj) 4 mg Q6H PRN IV NAUSEA AND/OR VOMITING; Start at 15:30 Acetaminophen (Tylenol Tab) 650 mg Q6H PRN PO PAIN LEVEL 1-3 OR FEVER Last administered on 03/19/17 17:49; Admin Dose 650 MG; Start 03/19/17 at 15:30 Acetaminophen (Tylenol Supp) 650 mg Q6H PRN ND PAIN LEVEL 1-3 OR FEVER; Start 03/19/17 at 15:30 Morphine Sulfate (morphine) 2 mg Q4H PRN IV SEVERE PAIN LEVEL 7-10 Last administered on 03/21/17 02:11; Admin Dose 2 MG; Start 03/19/17 at 15:30 Docusate Sodium (Colace) 100 mg Q12H PRN PO CONSTIPATION; Start 03/19/17 at 15: 30 Magnesium Hydroxide (Milk Of Mag) 30 ml DAILY PRN PO CONSTIPATION; Start at 15:30 Bisacodyl (Dulcolax) 5 mg DAILY PRN PO CONSTIPATION; Start 03/19/17 at 15:30 Zolpidem Tartrate 5 mg 5 mg QHS PRN PO SLEEP; Start 03/19/17 at 15:30 Ceftriaxone Sodium (Rocephin) 50 ml @ 100 mls/hr Q24H IVPB Last administered on 03/20/17 16:27; Admin Dose 100 MLS/HR; Start 03/19/17 at 16:00 Pantoprazole (Protonix Tab) 40 mg DAILY@06 PO Last administered on 03/21/17 06 :20; Admin Dose 40 MG; Start 03/21/17 at 06:00 LORENZO DEE MD Mar 21, 2017 13:41
[2017-03-21] MEDS: CEFTRIAXONE 1 GM/50 ML (PMX) 50 ML IVPB SCH (16:49)
--- NOTE | 2017-03-21 18:41 | PN ---
Date/Time of Note Date/Time of Note DATE: 03/21/17 TIME: 18:40 Assessment/Plan VTE Prophylaxis VTE Prophylaxis Intervention: other Lines/Catheters IV Catheter Type (from Nrs): Peripheral IV Urinary Cath still in place: Yes Reason Cath still needed: other (indicate) Assessment/Plan Chief Complaint/Hosp Course IMPRESSION: 1. Patient has pelvic mass. 2. Leukocytosis. 3. Right and mild left-sided hydroureteronephrosis. 4. Hypokalemia. 5. Acute kidney injury. 6. Hyponatremia. 7. Anemia. plan per surgical instrument maker ck labs Problems: Subjective 24 Hr Interval Summary Respiratory: no complaints Cardiovascular: no complaints Genitourinary: No dysuria, No hematuria Exam/Review of Systems Vital Signs Vitals Vital Signs Date Time Temp Pulse Resp B/P Pulse Ox O2 Delivery O2 Flow Rate FiO2 03/21/17 13:19 98.1 83 20 110/68 98 03/19/17 19:48 Room Air Intake and Output 03/20/17 03/20/17 03/21/17 15:00 23:00 07:00 Intake Total 2170 ml 1690 ml Output Total 1600 ml 1250 ml Balance 570 ml 440 ml Exam Respiratory: clear to auscultation Cardiovascular: regular rate and rhythm Gastrointestinal: soft Extremities: normal pulses Results Result Diagram: 03/20/17 1452 03/21/17 0506 Results 24 hrs Laboratory Tests Test 03/21/17 05:06 Sodium Level 140 Potassium Level 3.8 Chloride Level 108 Carbon Dioxide Level 26 Anion Gap 10 Blood Urea Nitrogen 5 L Creatinine 1.09 H Glucose Level 99 Calcium Level 9.0 Medications Medications Current Medications Ibuprofen 200 mg 200 mg Q6H PRN PO PAIN; Start 03/19/17 at 15:30 Dextrose/Sodium Chloride (D5-1/2ns) 1,000 ml @ 60 mls/hr [id number] IV Last administered on 03/21/17 02:12; Admin Dose 60 MLS/HR; Start 03/19/17 at 15:19 Ondansetron HCl (Zofran Inj) 4 mg Q6H PRN IV NAUSEA AND/OR VOMITING; Start at 15:30 Acetaminophen (Tylenol Tab) 650 mg Q6H PRN PO PAIN LEVEL 1-3 OR FEVER Last administered on 03/19/17 17:49; Admin Dose 650 MG; Start 03/19/17 at 15:30 Acetaminophen (Tylenol Supp) 650 mg Q6H PRN HI PAIN LEVEL 1-3 OR FEVER; Start 03/19/17 at 15:30 Morphine Sulfate (morphine) 2 mg Q4H PRN IV SEVERE PAIN LEVEL 7-10 Last administered on 03/21/17 02:11; Admin Dose 2 MG; Start 03/19/17 at 15:30 Docusate Sodium (Colace) 100 mg Q12H PRN PO CONSTIPATION; Start 03/19/17 at 15: 30 Magnesium Hydroxide (Milk Of Mag) 30 ml DAILY PRN PO CONSTIPATION; Start at 15:30 Bisacodyl (Dulcolax) 5 mg DAILY PRN PO CONSTIPATION; Start 03/19/17 at 15:30 Zolpidem Tartrate 5 mg 5 mg QHS PRN PO SLEEP; Start 03/19/17 at 15:30 Ceftriaxone Sodium (Rocephin) 50 ml @ 100 mls/hr Q24H IVPB Last administered on 03/21/17 16:49; Admin Dose 100 MLS/HR; Start 03/19/17 at 16:00 Pantoprazole (Protonix Tab) 40 mg DAILY@06 PO Last administered on 03/21/17 06 :20; Admin Dose 40 MG; Start 03/21/17 at 06:00 KIMBERLY PARK MD Mar 21, 2017 18:41
[2017-03-21 19:32] VITALS: BP 119/71; RESP 20
--- NOTE | 2017-03-21 19:48 | CONS ---
Date/Time of Note Date/Time of Note DATE: 03/21/17 TIME: 19:36 Assessment/Plan Assessment/Plan Chief Complaint/Hosp Course ID PROGRESS NOTE CURRENT ABX: Ceftriaxone #2 24H INTERVAL SUMMARY * Tmax 99.3 -> Leukocytosis, VSS -> Possible UTI sample not sent until after ABX onboard * URINE CULTURE Preliminary NO GROWTH AFTER 24 HOURS EXAM GEN: A/A/O -> resting in bed, distended ABD HEENT: Unremarkable NECK: supple CVS: RRR CHEST: Equal chest rise bilaterally, without dyspnea on observation ABD: Soft EXT: No c/c/e NEURO: Grossly intact, moves all extremities SKIN: No diaphoresis, no obvious rash ID ASSESSMENT 36 yo F admit with: 1. SIRS w/Tmax 99.3, leukocytosis +Abdominal pain => Improved post empiric ABX 2. Possible UTI => Urine sample sent post ABX URINE CULTURE Preliminary NO GROWTH AFTER 24 HOURS 3. Severe right and mild left-sided hydroureteronephrosis with markedly ectatic right ureter with obstruction in the distal ureters most likely from mass effect by the pelvic mass. * She will need bilateral stent placement if she is symptomatic or if there is need for improved creat for chemo per Dr. Galloway note 4. CT scan is positive for :1). Large ill-defined pelvic mass with free fluid. 5. Right ovarian cyst. 6. Diffuse circumferential thickening of the rectosigmoid colon which may be secondarily involved. 7. Acute kidney injury. 8. Hyponatremia. CURRENT ABX: Ceftriaxone ID RECOMMENDATIONS 1.Improved w/empiric ABX, possible UTI as sample sent post initiation ABX . Problems: Consultation Date/Type/Reason Admit Date/Time Mar 19, 2017 at 03:32 Initial Consult Date Exam/Review of Systems Vital Signs Vitals Vital Signs Date Time Temp Pulse Resp B/P Pulse Ox O2 Delivery O2 Flow Rate FiO2 03/21/17 19:32 98.9 85 20 119/71 99 03/19/17 19:48 Room Air Intake and Output 03/20/17 03/20/17 03/21/17 15:00 23:00 07:00 Intake Total 2170 ml 1690 ml Output Total 1600 ml 1250 ml Balance 570 ml 440 ml Results Result Diagram: 03/20/17 1452 03/21/17 0506 Results 24 hrs Laboratory Tests Test 03/21/17 05:06 Sodium Level 140 Potassium Level 3.8 Chloride Level 108 Carbon Dioxide Level 26 Anion Gap 10 Blood Urea Nitrogen 5 L Creatinine 1.09 H Glucose Level 99 Calcium Level 9.0 Medications Medications Current Medications Ibuprofen 200 mg 200 mg Q6H PRN PO PAIN; Start 03/19/17 at 15:30 Dextrose/Sodium Chloride (D5-1/2ns) 1,000 ml @ 60 mls/hr [id number] IV Last administered on 03/21/17 02:12; Admin Dose 60 MLS/HR; Start 03/19/17 at 15:19 Ondansetron HCl (Zofran Inj) 4 mg Q6H PRN IV NAUSEA AND/OR VOMITING; Start at 15:30 Acetaminophen (Tylenol Tab) 650 mg Q6H PRN PO PAIN LEVEL 1-3 OR FEVER Last administered on 03/19/17 17:49; Admin Dose 650 MG; Start 03/19/17 at 15:30 Acetaminophen (Tylenol Supp) 650 mg Q6H PRN ND PAIN LEVEL 1-3 OR FEVER; Start 03/19/17 at 15:30 Morphine Sulfate (morphine) 2 mg Q4H PRN IV SEVERE PAIN LEVEL 7-10 Last administered on 03/21/17 02:11; Admin Dose 2 MG; Start 03/19/17 at 15:30 Docusate Sodium (Colace) 100 mg Q12H PRN PO CONSTIPATION; Start 03/19/17 at 15: 30 Magnesium Hydroxide (Milk Of Mag) 30 ml DAILY PRN PO CONSTIPATION; Start at 15:30 Bisacodyl (Dulcolax) 5 mg DAILY PRN PO CONSTIPATION; Start 03/19/17 at 15:30 Zolpidem Tartrate 5 mg 5 mg QHS PRN PO SLEEP; Start 03/19/17 at 15:30 Ceftriaxone Sodium (Rocephin) 50 ml @ 100 mls/hr Q24H IVPB Last administered on 03/21/17 16:49; Admin Dose 100 MLS/HR; Start 03/19/17 at 16:00 Pantoprazole (Protonix Tab) 40 mg DAILY@06 PO Last administered on 03/21/17 06 :20; Admin Dose 40 MG; Start 03/21/17 at 06:00 STERLING MAYES NP Mar 21, 2017 19:46
[2017-03-22 01:37] VITALS: BP 107/63; RESP 20
[2017-03-22 06:07] LABS: BASOPHILS % 0.4 % (0.0-2.0); EOSINOPHILS # 1.2 10^3/ul (0.0-0.5); EOSINOPHILS % 10.9 % (0.0-7.0); HEMATOCRIT 28.7 % (37.0-47.0); HEMOGLOBIN 8.7 g/dl (12.0-16.0); LYMPHOCYTES # 2.5 10^3/ul (0.8-2.9); LYMPHOCYTES % 22.8 % (15.0-51.0); MEAN CORPUSCULAR HEMOGLOBIN 27.4 pg (29.0-33.0); MEAN CORPUSCULAR HGB CONC 30.3 g/dl (32.0-37.0); MEAN CORPUSCULAR VOLUME 90.5 fl (82.0-101.0); MEAN PLATELET VOLUME 9.1 fl (7.4-10.4); MONOCYTE # 0.8 10^3/ul (0.3-0.9); NEUTROPHIL # 6.4 10^3/ul (1.6-7.5); NEUTROPHILS % 58.4 % (39.0-77.0); PLATELET COUNT 402 10^3/UL (140-415); RED BLOOD COUNT 3.17 10^6/ul (4.20-5.40); RED CELL DISTRIBUTION WIDTH 13.2 % (11.5-14.5)
[2017-03-22] MEDS: PANTOPRAZOLE (EC) 40 MG TAB PO SCH (06:09)
[2017-03-22 06:21] LABS: ALBUMIN 3.3 g/dl (3.3-4.9); ALBUMIN/GLOBULIN RATIO 0.82; BILIRUBIN,INDIRECT 0.2 mg/dl (0-1.1); BILIRUBIN,TOTAL 0.2 mg/dl (0.2-1.3); CALCIUM 9.1 mg/dl (8.4-10.2); CREATININE 0.95 mg/dl (0.44-1.00); POTASSIUM 3.6 mmol/L (3.5-5.1); TOTAL PROTEIN 7.3 g/dl (6.1-8.1)
[2017-03-22 07:18] VITALS: BP 112/68; RESP 20
[2017-03-22] MEDS: DEXTROSE 5%-0.45% NACL 1,000 ML IV SCH ×2 (09:22→15:45)
--- NOTE | 2017-03-22 10:31 | PN ---
Date/Time of Note Date/Time of Note DATE: 03/22/17 TIME: 10:24 Assessment/Plan VTE Prophylaxis VTE Prophylaxis Intervention: LMWH Lines/Catheters IV Catheter Type (from Nrsg): Peripheral IV Urinary Cath still in place: Yes Reason Cath still needed: other (indicate) (hydronephrosis) Assessment/Plan Chief Complaint/Hosp Course 36 y/o with 1. Patient has pelvic mass. Issue is to find from previous surgeon if .recurrent cervical cancer and if so determine if she can be treated with RT; in which case ureteral stenting important. versus Recurrent cervical cancer to be managed surgically (less likely) or not a recurrent cervical but instead other lesion to be removed (stenting not needed for either) 2. SIRS w/Tmax 99.3, leukocytosis +Abdominal pain => Improved post empiric ABX 3. Right and mild left-sided hydroureteronephrosis. Per Dr Galloway > she will need bilateral stent placement if she is symptomatic or if there is need for improved creat for chemo 4. Hypokalemia resolved 5. Acute kidney injury. resolved s/p hydration and ruiz 6. Hyponatremia. resolved 7. Anemia. 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 - Pain control - c/w Ruiz - CK labs - Ambulate Problems: Subjective 24 Hr Interval Summary Free Text/Dictation Pain is better improved Ruiz draining well Exam/Review of Systems Vital Signs Vitals Vital Signs Date Time Temp Pulse Resp B/P Pulse Ox O2 Delivery O2 Flow Rate FiO2 03/22/17 07:18 98.1 79 20 112/68 98 03/19/17 19:48 Room Air Intake and Output 03/21/17 03/21/17 03/22/17 15:00 23:00 07:00 Intake Total 2060 ml 1140 ml Output Total 1700 ml 1450 ml Balance 360 ml -310 ml Exam Gen:Awake,alert Neck:supple CVS:Regular rate and rthym Lungs:clear Abdomen: distended +bs Ext no edema Results Result Diagram: 03/22/17 0454 03/22/17 0453 Results 24 hrs Laboratory Tests Test 03/22/17 04:53 03/22/17 04:54 Sodium Level 140 Potassium Level 3.6 Chloride Level 107 Carbon Dioxide Level 27 Anion Gap 10 Blood Urea Nitrogen 4 L Creatinine 0.95 Glucose Level 96 Calcium Level 9.1 Total Bilirubin 0.2 Direct Bilirubin 0.00 Indirect Bilirubin 0.2 Aspartate Amino Transf (AST/SGOT) 22 Alanine Aminotransferase (ALT/SGPT) 27 Alkaline Phosphatase 83 Total Protein 7.3 Albumin 3.3 Globulin 4.00 H Albumin/Globulin Ratio 0.82 White Blood Count 11.0 H Red Blood Count 3.17 L Hemoglobin 8.7 L Hematocrit 28.7 L Mean Corpuscular Volume 90.5 Mean Corpuscular Hemoglobin 27.4 L Mean Corpuscular Hemoglobin Concent 30.3 L Red Cell Distribution Width 13.2 Platelet Count 402 Mean Platelet Volume 9.1 Neutrophils % 58.4 Lymphocytes % 22.8 Monocytes % 7.0 Eosinophils % 10.9 H Basophils % 0.4 Nucleated Red Blood Cells % 0.0 Neutrophils # 6.4 Lymphocytes # 2.5 Monocytes # 0.8 Eosinophils # 1.2 H Basophils # 0.0 Nucleated Red Blood Cells # 0.0 Medications Medications Current Medications Ibuprofen 200 mg 200 mg Q6H PRN PO PAIN; Start 03/19/17 at 15:30 Dextrose/Sodium Chloride (D5-1/2ns) 1,000 ml @ 60 mls/hr [id number] IV Last administered on 03/21/17 20:12; Admin Dose 60 MLS/HR; Start 03/19/17 at 15:19 Ondansetron HCl (Zofran Inj) 4 mg Q6H PRN IV NAUSEA AND/OR VOMITING; Start at 15:30 Acetaminophen (Tylenol Tab) 650 mg Q6H PRN PO PAIN LEVEL 1-3 OR FEVER Last administered on 03/19/17 17:49; Admin Dose 650 MG; Start 03/19/17 at 15:30 Acetaminophen (Tylenol Supp) 650 mg Q6H PRN [place] PAIN LEVEL 1-3 OR FEVER; Start 03/19/17 at 15:30 Morphine Sulfate (morphine) 2 mg Q4H PRN IV SEVERE PAIN LEVEL 7-10 Last administered on 03/21/17 20:12; Admin Dose 2 MG; Start 03/19/17 at 15:30 Docusate Sodium (Colace) 100 mg Q12H PRN PO CONSTIPATION; Start 03/19/17 at 15: 30 Magnesium Hydroxide (Milk Of Mag) 30 ml DAILY PRN PO CONSTIPATION; Start at 15:30 Bisacodyl (Dulcolax) 5 mg DAILY PRN PO CONSTIPATION; Start 03/19/17 at 15:30 Zolpidem Tartrate 5 mg 5 mg QHS PRN PO SLEEP; Start 03/19/17 at 15:30 Ceftriaxone Sodium (Rocephin) 50 ml @ 100 mls/hr Q24H IVPB Last administered on 03/21/17 16:49; Admin Dose 100 MLS/HR; Start 03/19/17 at 16:00 Pantoprazole (Protonix Tab) 40 mg DAILY@06 PO Last administered on 03/22/17 06 :09; Admin Dose 40 MG; Start 03/21/17 at 06:00 SOPHIA PALOMO MD Mar 22, 2017 10:31
--- NOTE | 2017-03-22 16:15 | PN ---
DATE: 03/22/2017 SUBJECTIVE DATA: No acute changes. The patient is alert, looks comfortable. No fevers overnight. LABORATORY AND DIAGNOSTIC DATA: WBC today 11, platelets 402, no shift, no bands. BUN 4, creatinine 0.95. MICROBIOLOGY: Blood and urine culture negative. Stool for C. diff negative. ANTIMICROBIALS: Patient is on IV Rocephin. DIAGNOSTICS: Chest x-ray on admission revealed no evidence for active cardiopulmonary disease. PHYSICAL EXAMINATION: GENERAL: Well developed, middle-aged woman who is awake, in no distress. CHEST: Chest rise symmetrical. Breath sounds clear. HEART: S1, S2. ABDOMEN: Soft, bowel sounds present. EXTREMITIES: Extremities without cyanosis. ASSESSMENT: 1. Systemic inflammatory response syndrome with resolving leukocytosis possibly secondary to pelvic mass. 2. Severe right and mild left-sided hydroureteronephrosis secondary to obstructive mass. 3. Acute kidney injury on admission, resolving. 4. History of cervical cancer with questionable recurrence, patient is being seen by [facility]. 5. Anemia with rectal bleeding. Most probably from tumor and waiting with the rectosigmoid colon as per Gastroenterology note. PLAN: 1. The patient remains stable. 2. All cultures have been negative. 3. She is being seen by multiple consultants. 4. We will discontinue antibiotics and observe her. Dictated By: Mt Dejesus NP /[email or web address] /Document#: [id number]
[2017-03-22 19:24] VITALS: BP 124/76; RESP 20
[2017-03-22] MEDS: morphine 2 MG INJ IV PRN (19:35)
--- NOTE | 2017-03-22 21:04 | CONS ---
Date/Time of Note Date/Time of Note DATE: 03/22/17 TIME: 20:57 Assessment/Plan Assessment/Plan Chief Complaint/Hosp Course Lorenzo Dee M.D. [facility] History and Physical Examination/ Consultation Michelle Gross Mar 20, 2017 Age: 36 : 1980 Physicians: Web [employer] Teacher: Oncologist: Referring MD History of the Present Illness: This is a 36- year old female with a history of cervical cancer, 05/20 presumadly stage IA or IB1 given that a "hysterectomy " was done but we do not know the type. Her followup was not a q3mo rigorous pelvic exam or questioning or CT and she developed pain and distension about a month ago. Current imaging shows a 10-12 cm pelvic mass, mod/severe right hydroureter and mild left ureter. Of note the rt ovary is noted but not left. Past Medical History: Surgical: hysterectomy May, 2016 Medical: None Medications: reviewed Allergies: No active allergies recorded Family History: Noncontributory Social History: Noncontributory Review of Systems: Negative except for above noted Physical Examination General: Alert. HEENT: Pupils are equal, round, reactive to light and accommodation. Neck: Supple with no masses of lymphadenopathy. Breast: Deferred due to recent examination and responsibility of primary care physician. Chest: Clear and symmetric. Heart: Normal rhythm with no murmur. Abdomen: Distended with lower abd mass, firm and mild/mod tender. No rebound. Pelvic exam:Large rounded posterior and anterior globular masses; tender and displacing the bladder base and posterior Rectal: Confirmatory with pelvic exam; there is 3-5 cm tumor free rectum but involvment cephlad. Neurological: Grossly intact Assessment: Cervical cancer by history, probably recurrent disease but given that we do not have her record of the cell type and precise surgery done; there is some chance of a second primary (ovarian from left side with uncommon histology). Plan: 1- Will contact the doctor who did her surgery 05/20 and obtain op report and path report to help determine probability of cervical cancer and whether or not we have biopsy recently. 2- If not then a biopsy is essential, unless the chances of a cervical cancer were remote. If here cervical lesion was 5mm with 1mm invasion for a squamous lesion; the risks of a 10 cm recurrence < 1 year later would be remote and be would need a bx or I would do a laparoscopy to determine. If the lesion were large with deep invasion and she did not receive RT or chemo this disease pattern can occur. 3- If the conclusion is a recurrent cervical cancer the patient indicated whe is interested in cure or living as long as possible; a) I indicated that ideally the treatment would be pelvic RT with concurrent chemo (cisplatin) and possibly additional chemo. A RT consult would be useful once I get a pathology/histology answer. b) if it is a recurrent cervical cancer and not treatable with RT I could possibly do an Exenteration. The rectum and colon could possibly be anastamosed as I have many times without a colostomy, but bladder involvement might require a permant urinary diversion which I discussed with the patient. 4- If we concluded not a recurrent cervical cancer (not likely but until information availible I'd say some possibility); surgical excision more feasible and more likely to maintain fecal and urinary continance. Lorenzo Dee M.D. Problems: Consultation Date/Type/Reason Admit Date/Time Mar 19, 2017 at 03:32 24 HR Interval Summary Free Text/Dictation Feels about the same. 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 Exam/Review of Systems Vital Signs Vitals Vital Signs Date Time Temp Pulse Resp B/P Pulse Ox O2 Delivery O2 Flow Rate FiO2 03/22/17 19:24 98.3 82 20 124/76 99 03/19/17 19:48 Room Air Intake and Output 03/21/17 03/21/17 03/22/17 15:00 23:00 07:00 Intake Total 2060 ml 1140 ml Output Total 1700 ml 1450 ml Balance 360 ml -310 ml Results Result Diagram: 03/22/17 0454 03/22/17 0453 Results 24 hrs Laboratory Tests Test 03/22/17 04:53 03/22/17 04:54 Sodium Level 140 Potassium Level 3.6 Chloride Level 107 Carbon Dioxide Level 27 Anion Gap 10 Blood Urea Nitrogen 4 L Creatinine 0.95 Glucose Level 96 Calcium Level 9.1 Total Bilirubin 0.2 Direct Bilirubin 0.00 Indirect Bilirubin 0.2 Aspartate Amino Transf (AST/SGOT) 22 Alanine Aminotransferase (ALT/SGPT) 27 Alkaline Phosphatase 83 Total Protein 7.3 Albumin 3.3 Globulin 4.00 H Albumin/Globulin Ratio 0.82 White Blood Count 11.0 H Red Blood Count 3.17 L Hemoglobin 8.7 L Hematocrit 28.7 L Mean Corpuscular Volume 90.5 Mean Corpuscular Hemoglobin 27.4 L Mean Corpuscular Hemoglobin Concent 30.3 L Red Cell Distribution Width 13.2 Platelet Count 402 Mean Platelet Volume 9.1 Neutrophils % 58.4 Lymphocytes % 22.8 Monocytes % 7.0 Eosinophils % 10.9 H Basophils % 0.4 Nucleated Red Blood Cells % 0.0 Neutrophils # 6.4 Lymphocytes # 2.5 Monocytes # 0.8 Eosinophils # 1.2 H Basophils # 0.0 Nucleated Red Blood Cells # 0.0 Medications Medications Current Medications Ibuprofen 200 mg 200 mg Q6H PRN PO PAIN; Start 03/19/17 at 15:30 Dextrose/Sodium Chloride (D5-1/2ns) 1,000 ml @ 60 mls/hr [id number] IV Last administered on 03/22/17 15:45; Admin Dose 60 MLS/HR; Start 03/19/17 at 15:19 Ondansetron HCl (Zofran Inj) 4 mg Q6H PRN IV NAUSEA AND/OR VOMITING; Start at 15:30 Acetaminophen (Tylenol Tab) 650 mg Q6H PRN PO PAIN LEVEL 1-3 OR FEVER Last administered on 03/19/17 17:49; Admin Dose 650 MG; Start 03/19/17 at 15:30 Acetaminophen (Tylenol Supp) 650 mg Q6H PRN [place] PAIN LEVEL 1-3 OR FEVER; Start 03/19/17 at 15:30 Morphine Sulfate (morphine) 2 mg Q4H PRN IV SEVERE PAIN LEVEL 7-10 Last administered on 03/22/17 19:35; Admin Dose 2 MG; Start 03/19/17 at 15:30 Docusate Sodium (Colace) 100 mg Q12H PRN PO CONSTIPATION; Start 03/19/17 at 15: 30 Magnesium Hydroxide (Milk Of Mag) 30 ml DAILY PRN PO CONSTIPATION; Start at 15:30 Bisacodyl (Dulcolax) 5 mg DAILY PRN PO CONSTIPATION; Start 03/19/17 at 15:30 Zolpidem Tartrate (Ambien) 5 mg QHS PRN PO SLEEP; Start 03/19/17 at 15:30 Pantoprazole (Protonix Tab) 40 mg DAILY@06 PO Last administered on 03/22/17 06 :09; Admin Dose 40 MG; Start 03/21/17 at 06:00 LORENZO DEE MD Mar 22, 2017 21:04
[2017-03-23 01:44] VITALS: BP 108/66; RESP 20
[2017-03-23] MEDS: DEXTROSE 5%-0.45% NACL 1,000 ML IV SCH ×3 (02:39→19:19)
[2017-03-23 05:50] LABS: BASOPHILS % 0.3 % (0.0-2.0); EOSINOPHILS # 0.9 10^3/ul (0.0-0.5); EOSINOPHILS % 7.8 % (0.0-7.0); HEMATOCRIT 29.5 % (37.0-47.0); HEMOGLOBIN 9.4 g/dl (12.0-16.0); LYMPHOCYTES # 2.6 10^3/ul (0.8-2.9); LYMPHOCYTES % 22.4 % (15.0-51.0); MEAN CORPUSCULAR HEMOGLOBIN 28.9 pg (29.0-33.0); MEAN CORPUSCULAR HGB CONC 31.9 g/dl (32.0-37.0); MEAN CORPUSCULAR VOLUME 90.8 fl (82.0-101.0); MEAN PLATELET VOLUME 8.9 fl (7.4-10.4); MONOCYTE # 0.8 10^3/ul (0.3-0.9); MONOCYTES % 6.7 % (0.0-11.0); NEUTROPHIL # 7.3 10^3/ul (1.6-7.5); PLATELET COUNT 423 10^3/UL (140-415); RED BLOOD COUNT 3.25 10^6/ul (4.20-5.40); RED CELL DISTRIBUTION WIDTH 13.2 % (11.5-14.5); WHITE BLOOD COUNT 11.8 10^3/ul (4.8-10.8)
[2017-03-23] MEDS: PANTOPRAZOLE (EC) 40 MG TAB PO SCH (06:08)
[2017-03-23 06:49] LABS: CALCIUM 9.2 mg/dl (8.4-10.2); CREATININE 1.04 mg/dl (0.44-1.00); POTASSIUM 4.1 mmol/L (3.5-5.1)
[2017-03-23 07:21] VITALS: BP 116/72; RESP 20
--- NOTE | 2017-03-23 11:54 | CONS ---
Date/Time of Note Date/Time of Note DATE: 03/23/17 TIME: 11:53 Assessment/Plan Assessment/Plan Additional Assessment/Plan IMPRESSION: 1. Pelvic mass. 2. Cancer of the cervix status post surgery in May 2016. 3. Rectal bleeding most probably from the tumor invading the rectosigmoid colon. 4. Anemia. 5. Bilateral hydro. PLAN: 1. GREEN BUILDING ENGINEER notes noted, close GREEN BUILDING ENGINEER follow-up 2. Definitely needs stenting of both ureter as per the urologist. 3. Continue antibiotic. 4. Monitor H and H. 5. Patient will be placed on a stool softener. 6. Was told by her oncologist as an outpatient for radiation and chemotherapy and this information was given to be by the patient today 7. GREEN BUILDING ENGINEER oncology follow-up Consultation Date/Type/Reason Admit Date/Time Mar 19, 2017 at 03:32 24 HR Interval Summary Free Text/Dictation No bleeding Exam/Review of Systems Vital Signs Vitals Vital Signs Date Time Temp Pulse Resp B/P Pulse Ox O2 Delivery O2 Flow Rate FiO2 03/23/17 07:21 97.9 74 20 116/72 99 03/19/17 19:48 Room Air Intake and Output 03/22/17 03/22/17 03/23/17 15:00 23:00 07:00 Intake Total 1800 ml 1500 ml Output Total 1100 ml 700 ml Balance 700 ml 800 ml Exam Constitutional: alert, oriented, well developed Psych: nl mood/affect, no complaints Head: atraumatic, normocephalic Eyes: EOMI, PERRL, nl conjunctiva, nl lids, nl sclera ENMT: nl external ears & nose, nl lips & teeth, nl nasal mucosa & septum Neck: non-tender, supple Respiratory: clear to auscultation, normal air movement Cardiovascular: nl pulses, regular rate and rhythm Gastrointestinal: nl liver, spleen, non-tender, soft Musculoskeletal: nl extremities to inspection, nl gait and stance Extremities: normal pulses Neurological: MONOGRAM OPERATOR II-XII intact, nl mental status, nl speech, nl strength Skin: nl turgor, No rash or lesions Lymph: nl lymph nodes Results Result Diagram: 03/23/17 0513 03/23/17 0513 Results 24 hrs Laboratory Tests Test 03/23/17 05:13 White Blood Count 11.8 H Red Blood Count 3.25 L Hemoglobin 9.4 L Hematocrit 29.5 L Mean Corpuscular Volume 90.8 Mean Corpuscular Hemoglobin 28.9 L Mean Corpuscular Hemoglobin Concent 31.9 L Red Cell Distribution Width 13.2 Platelet Count 423 H Mean Platelet Volume 8.9 Neutrophils % 62.0 Lymphocytes % 22.4 Monocytes % 6.7 Eosinophils % 7.8 H Basophils % 0.3 Nucleated Red Blood Cells % 0.0 Neutrophils # 7.3 Lymphocytes # 2.6 Monocytes # 0.8 Eosinophils # 0.9 H Basophils # 0.0 Nucleated Red Blood Cells # 0.0 Sodium Level 142 Potassium Level 4.1 Chloride Level 107 Carbon Dioxide Level 28 Anion Gap 11 Blood Urea Nitrogen 6 L Creatinine 1.04 H Glucose Level 100 Calcium Level 9.2 Medications Medications Current Medications Ibuprofen 200 mg 200 mg Q6H PRN PO PAIN; Start 03/19/17 at 15:30 Dextrose/Sodium Chloride (D5-1/2ns) 1,000 ml @ 60 mls/hr [id number] IV Last administered on 03/23/17 06:08; Admin Dose 60 MLS/HR; Start 03/19/17 at 15:19 Ondansetron HCl (Zofran Inj) 4 mg Q6H PRN IV NAUSEA AND/OR VOMITING; Start at 15:30 Acetaminophen (Tylenol Tab) 650 mg Q6H PRN PO PAIN LEVEL 1-3 OR FEVER Last administered on 03/19/17 17:49; Admin Dose 650 MG; Start 03/19/17 at 15:30 Acetaminophen (Tylenol Supp) 650 mg Q6H PRN [place] PAIN LEVEL 1-3 OR FEVER; Start 03/19/17 at 15:30 Morphine Sulfate (morphine) 2 mg Q4H PRN IV SEVERE PAIN LEVEL 7-10 Last administered on 03/22/17 19:35; Admin Dose 2 MG; Start 03/19/17 at 15:30 Docusate Sodium (Colace) 100 mg Q12H PRN PO CONSTIPATION; Start 03/19/17 at 15: 30 Magnesium Hydroxide (Milk Of Mag) 30 ml DAILY PRN PO CONSTIPATION; Start at 15:30 Bisacodyl (Dulcolax) 5 mg DAILY PRN PO CONSTIPATION; Start 03/19/17 at 15:30 Zolpidem Tartrate (Ambien) 5 mg QHS PRN PO SLEEP; Start 03/19/17 at 15:30 Pantoprazole (Protonix Tab) 40 mg DAILY@06 PO Last administered on 03/23/17t 06 :08; Admin Dose 40 MG; Start 03/21/17 at 06:00 BRITTNI PICKARD MD Mar 23, 2017 11:54
[2017-03-23 13:10] VITALS: BP 114/69; RESP 20
--- NOTE | 2017-03-23 13:45 | CONS ---
Date/Time of Note Date/Time of Note DATE: 03/23/17 TIME: 13:44 Assessment/Plan Assessment/Plan Chief Complaint/Hosp Course SUBJECTIVE DATA: No acute changes. The patient is alert, looks comfortable. No fevers overnight. No pain MICROBIOLOGY: Blood and urine culture negative. Stool for C. diff negative. DIAGNOSTICS: Chest x-ray on admission revealed no evidence for active cardiopulmonary disease. PHYSICAL EXAMINATION: GENERAL: Well developed, middle-aged woman who is awake, in no distress. CHEST: Chest rise symmetrical. Breath sounds clear. HEART: S1, S2. ABDOMEN: Soft, bowel sounds present. EXTREMITIES: Extremities without cyanosis. ASSESSMENT: 1. Systemic inflammatory response syndrome with resolving leukocytosis possibly secondary to pelvic mass. 2. Severe right and mild left-sided hydroureteronephrosis secondary to obstructive mass. 3. Acute kidney injury on admission, resolving. 4. History of cervical cancer with questionable recurrence, patient is being seen by TRAFFIC CONTROL OPERATOR Oncology. 5. Anemia with rectal bleeding. Most probably from tumor and waiting with the rectosigmoid colon as per Gastroenterology note. PLAN: The patient remains stable, off abx, continue present care await for final workup DW staff/pt Problems: Consultation Date/Type/Reason Admit Date/Time Mar 19, 2017 at 03:32 Initial Consult Date Type of Consultation: ID Exam/Review of Systems Vital Signs Vitals Vital Signs Date Time Temp Pulse Resp B/P Pulse Ox O2 Delivery O2 Flow Rate FiO2 03/23/17 13:10 98.4 96 20 114/69 98 03/19/17 19:48 Room Air Intake and Output 03/22/17 03/22/17 03/23/17 15:00 23:00 07:00 Intake Total 1800 ml 1500 ml Output Total 1100 ml 700 ml Balance 700 ml 800 ml Results Result Diagram: 03/23/17 0513 03/23/17 0513 Results 24 hrs Laboratory Tests Test 03/23/17 05:13 White Blood Count 11.8 H Red Blood Count 3.25 L Hemoglobin 9.4 L Hematocrit 29.5 L Mean Corpuscular Volume 90.8 Mean Corpuscular Hemoglobin 28.9 L Mean Corpuscular Hemoglobin Concent 31.9 L Red Cell Distribution Width 13.2 Platelet Count 423 H Mean Platelet Volume 8.9 Neutrophils % 62.0 Lymphocytes % 22.4 Monocytes % 6.7 Eosinophils % 7.8 H Basophils % 0.3 Nucleated Red Blood Cells % 0.0 Neutrophils # 7.3 Lymphocytes # 2.6 Monocytes # 0.8 Eosinophils # 0.9 H Basophils # 0.0 Nucleated Red Blood Cells # 0.0 Sodium Level 142 Potassium Level 4.1 Chloride Level 107 Carbon Dioxide Level 28 Anion Gap 11 Blood Urea Nitrogen 6 L Creatinine 1.04 H Glucose Level 100 Calcium Level 9.2 Medications Medications Current Medications Ibuprofen 200 mg 200 mg Q6H PRN PO PAIN; Start 03/19/17 at 15:30 Dextrose/Sodium Chloride (D5-1/2ns) 1,000 ml @ 60 mls/hr [id number] IV Last administered on 03/23/17 06:08; Admin Dose 60 MLS/HR; Start 03/19/17 at 15:19 Ondansetron HCl (Zofran Inj) 4 mg Q6H PRN IV NAUSEA AND/OR VOMITING; Start at 15:30 Acetaminophen (Tylenol Tab) 650 mg Q6H PRN PO PAIN LEVEL 1-3 OR FEVER Last administered on 03/19/17 17:49; Admin Dose 650 MG; Start 03/19/17 at 15:30 Acetaminophen (Tylenol Supp) 650 mg Q6H PRN [place] PAIN LEVEL 1-3 OR FEVER; Start 03/19/17 at 15:30 Morphine Sulfate (morphine) 2 mg Q4H PRN IV SEVERE PAIN LEVEL 7-10 Last administered on 03/22/17 19:35; Admin Dose 2 MG; Start 03/19/17 at 15:30 Docusate Sodium (Colace) 100 mg Q12H PRN PO CONSTIPATION; Start 03/19/17 at 15: 30 Magnesium Hydroxide (Milk Of Mag) 30 ml DAILY PRN PO CONSTIPATION; Start at 15:30 Bisacodyl (Dulcolax) 5 mg DAILY PRN PO CONSTIPATION; Start 03/19/17 at 15:30 Zolpidem Tartrate (Ambien) 5 mg QHS PRN PO SLEEP; Start 03/19/17 at 15:30 Pantoprazole (Protonix Tab) 40 mg DAILY@06 PO Last administered on 03/23/17 06 :08; Admin Dose 40 MG; Start 03/21/17 at 06:00 BRYNN GIBSON NP Mar 23, 2017 13:45
--- NOTE | 2017-03-23 16:53 | PN ---
Date/Time of Note Date/Time of Note DATE: 03/23/17 TIME: 16:48 Assessment/Plan VTE Prophylaxis VTE Prophylaxis Intervention: LMWH Lines/Catheters IV Catheter Type (from Nrs): Peripheral IV Urinary Cath still in place: Yes Reason Cath still needed: urinary retention Assessment/Plan Chief Complaint/Hosp Course 36 y/o with 1. Patient has pelvic mass. Issue is to find from previous surgeon if .recurrent cervical cancer and if so determine if she can be treated with RT; in which case ureteral stenting important. versus Recurrent cervical cancer to be managed surgically (less likely) or not a recurrent cervical but instead other lesion to be removed (stenting not needed for either) 2. SIRS w/Tmax 99.3, leukocytosis +Abdominal pain => Improved post empiric ABX 3. Right and mild left-sided hydroureteronephrosis. Per Dr Galloway > she will need bilateral stent placement if she is symptomatic or if there is need for improved creat for chemo 4. Hypokalemia resolved 5. Acute kidney injury. resolved s/p hydration and ruiz 6. Hyponatremia. resolved 7. Anemia. Recs - Spoke to Dr Salvador today who has requested records for FNA and if recurrent cervical cancer will need radiation, if doable then stent and needs RT and cisplatin. If cannot be radiated then option is surgcical in that case stents not needed. If she refuses surgery then only Palliative chemo and stenting - Spoke to patient, and she wished to go to her oncologist for further treatment - Pain control - c/w Ruiz - CK labs - Ambulate Problems: Subjective 24 Hr Interval Summary Free Text/Dictation Pt told that she had FNA at [facility] few weeks ago and does not want surgical treatment and was told that she need XRT and Chemo Exam/Review of Systems Vital Signs Vitals Vital Signs Date Time Temp Pulse Resp B/P Pulse Ox O2 Delivery O2 Flow Rate FiO2 03/23/17 13:10 98.4 96 20 114/69 98 03/19/17 19:48 Room Air Intake and Output 03/22/17 03/22/17 03/23/17 15:00 23:00 07:00 Intake Total 1800 ml 1500 ml Output Total 1100 ml 700 ml Balance 700 ml 800 ml Exam Gen:Awake,alert Neck:supple CVS:Regular rate and rthym Lungs:clear Abdomen: distended +bs Ext no edema Results Result Diagram: 03/23/17 0513 03/23/17 0513 Results 24 hrs Laboratory Tests Test 03/23/17 05:13 White Blood Count 11.8 H Red Blood Count 3.25 L Hemoglobin 9.4 L Hematocrit 29.5 L Mean Corpuscular Volume 90.8 Mean Corpuscular Hemoglobin 28.9 L Mean Corpuscular Hemoglobin Concent 31.9 L Red Cell Distribution Width 13.2 Platelet Count 423 H Mean Platelet Volume 8.9 Neutrophils % 62.0 Lymphocytes % 22.4 Monocytes % 6.7 Eosinophils % 7.8 H Basophils % 0.3 Nucleated Red Blood Cells % 0.0 Neutrophils # 7.3 Lymphocytes # 2.6 Monocytes # 0.8 Eosinophils # 0.9 H Basophils # 0.0 Nucleated Red Blood Cells # 0.0 Sodium Level 142 Potassium Level 4.1 Chloride Level 107 Carbon Dioxide Level 28 Anion Gap 11 Blood Urea Nitrogen 6 L Creatinine 1.04 H Glucose Level 100 Calcium Level 9.2 Medications Medications Current Medications Ibuprofen 200 mg 200 mg Q6H PRN PO PAIN; Start 03/19/17 at 15:30 Dextrose/Sodium Chloride (D5-1/2ns) 1,000 ml @ 60 mls/hr [id number] IV Last administered on 03/23/17 06:08; Admin Dose 60 MLS/HR; Start 03/19/17 at 15:19 Ondansetron HCl (Zofran Inj) 4 mg Q6H PRN IV NAUSEA AND/OR VOMITING; Start at 15:30 Acetaminophen (Tylenol Tab) 650 mg Q6H PRN PO PAIN LEVEL 1-3 OR FEVER Last administered on 03/19/17 17:49; Admin Dose 650 MG; Start 03/19/17 at 15:30 Acetaminophen (Tylenol Supp) 650 mg Q6H PRN [place] PAIN LEVEL 1-3 OR FEVER; Start 03/19/17 at 15:30 Morphine Sulfate (morphine) 2 mg Q4H PRN IV SEVERE PAIN LEVEL 7-10 Last administered on 03/22/17 19:35; Admin Dose 2 MG; Start 03/19/17 at 15:30 Docusate Sodium (Colace) 100 mg Q12H PRN PO CONSTIPATION; Start 03/19/17 at 15: 30 Magnesium Hydroxide (Milk Of Mag) 30 ml DAILY PRN PO CONSTIPATION; Start at 15:30 Bisacodyl (Dulcolax) 5 mg DAILY PRN PO CONSTIPATION; Start 03/19/17 at 15:30 Zolpidem Tartrate (Ambien) 5 mg QHS PRN PO SLEEP; Start 03/19/17 at 15:30 Pantoprazole (Protonix Tab) 40 mg DAILY@06 PO Last administered on 03/23/17t 06 :08; Admin Dose 40 MG; Start 03/21/17 at 06:00 SOPHIA PALOMO MD Mar 23, 2017 16:53
[2017-03-23 19:30] VITALS: BP 121/66; RESP 20
[2017-03-24] MEDS: DEXTROSE 5%-0.45% NACL 1,000 ML IV SCH ×3 (00:25→16:00)
[2017-03-24 01:44] VITALS: BP 114/65; RESP 20
[2017-03-24] MEDS: PANTOPRAZOLE (EC) 40 MG TAB PO SCH (05:51)
[2017-03-24 07:32] VITALS: BP 112/57; RESP 18
--- NOTE | 2017-03-24 12:47 | CONS ---
Date/Time of Note Date/Time of Note DATE: 03/24/17 TIME: 12:46 Assessment/Plan Assessment/Plan Chief Complaint/Hosp Course SUBJECTIVE DATA: No acute changes. No fevers overnight. No pain MICROBIOLOGY: Blood and urine culture negative. Stool for C. diff negative. DIAGNOSTICS: Chest x-ray on admission revealed no evidence for active cardiopulmonary disease. PHYSICAL EXAMINATION: GENERAL: Well developed, middle-aged woman who is awake, in no distress. CHEST: Chest rise symmetrical. Breath sounds clear. HEART: S1, S2. ABDOMEN: Soft, bowel sounds present. EXTREMITIES: Extremities without cyanosis. ASSESSMENT: 1. Systemic inflammatory response syndrome with resolving leukocytosis possibly secondary to pelvic mass. 2. Severe right and mild left-sided hydroureteronephrosis secondary to obstructive mass. 3. Acute kidney injury on admission, resolving. 4. History of cervical cancer with questionable recurrence, patient is being seen by CUSTOMER SERVICE CORRESPONDENCE CLERK Oncology. 5. Anemia with rectal bleeding. Most probably from tumor and waiting with the rectosigmoid colon as per Gastroenterology note. PLAN: The patient remains stable, off abx, continue present care await for final workup DW staff/pt Problems: Consultation Date/Type/Reason Admit Date/Time Mar 19, 2017 at 03:32 Type of Consultation: ID Exam/Review of Systems Vital Signs Vitals Vital Signs Date Time Temp Pulse Resp B/P Pulse Ox O2 Delivery O2 Flow Rate FiO2 03/24/17 07:32 98.1 77 18 112/57 98 Intake and Output 03/23/17 03/23/17 03/24/17 15:00 23:00 07:00 Intake Total 2640 ml 970 ml Output Total 2150 ml 1300 ml Balance 490 ml -330 ml Results Result Diagram: 03/23/17 0513 03/23/17 0513 Medications Medications Current Medications Ibuprofen 200 mg 200 mg Q6H PRN PO PAIN; Start 03/19/17 at 15:30 Dextrose/Sodium Chloride (D5-1/2ns) 1,000 ml @ 60 mls/hr [id number] IV Last administered on 03/24/17t 00:25; Admin Dose 60 MLS/HR; Start 03/19/17 at 15:19 Ondansetron HCl (Zofran Inj) 4 mg Q6H PRN IV NAUSEA AND/OR VOMITING; Start at 15:30 Acetaminophen (Tylenol Tab) 650 mg Q6H PRN PO PAIN LEVEL 1-3 OR FEVER Last administered on 03/19/17 17:49; Admin Dose 650 MG; Start 03/19/17 at 15:30 Acetaminophen (Tylenol Supp) 650 mg Q6H PRN [place] PAIN LEVEL 1-3 OR FEVER; Start 03/19/17 at 15:30 Morphine Sulfate (morphine) 2 mg Q4H PRN IV SEVERE PAIN LEVEL 7-10 Last administered on 03/22/17 19:35; Admin Dose 2 MG; Start 03/19/17 at 15:30 Docusate Sodium (Colace) 100 mg Q12H PRN PO CONSTIPATION; Start 03/19/17 at 15: 30 Magnesium Hydroxide (Milk Of Mag) 30 ml DAILY PRN PO CONSTIPATION; Start at 15:30 Bisacodyl (Dulcolax) 5 mg DAILY PRN PO CONSTIPATION; Start 03/19/17 at 15:30 Zolpidem Tartrate (Ambien) 5 mg QHS PRN PO SLEEP; Start 03/19/17 at 15:30 Pantoprazole (Protonix Tab) 40 mg DAILY@06 PO Last administered on 03/24/17 05 :51; Admin Dose 40 MG; Start 03/21/17 at 06:00 BRYNN GIBSON NP Mar 24, 2017 12:47
[2017-03-24 14:28] VITALS: BP 114/72; RESP 18
--- NOTE | 2017-03-24 16:11 | PN ---
Date/Time of Note Date/Time of Note DATE: 03/24/17 TIME: 16:07 Assessment/Plan VTE Prophylaxis VTE Prophylaxis Intervention: LMWH Lines/Catheters IV Catheter Type (from Nrs): Peripheral IV Urinary Cath still in place: Yes Reason Cath still needed: urinary retention Assessment/Plan Chief Complaint/Hosp Course 36 y/o with 1. Patient has pelvic mass. Issue is to find from previous surgeon if .recurrent cervical cancer and if so determine if she can be treated with RT; in which case ureteral stenting important. versus Recurrent cervical cancer to be managed surgically (less likely) or not a recurrent cervical but instead other lesion to be removed (stenting not needed for either) 2. SIRS w/Tmax 99.3, leukocytosis +Abdominal pain => Improved post empiric ABX 3. Right and mild left-sided hydroureteronephrosis. Per Dr Galloway > she will need bilateral stent placement if she is symptomatic or if there is need for improved creat for chemo 4. Hypokalemia resolved 5. Acute kidney injury Cr, 1.04 6. Hyponatremia. resolved 7. Anemia. Recs - Spoke to Dr Salvador today who has requested records for FNA and if recurrent cervical cancer will need radiation, if doable then stent and needs RT and cisplatin. If cannot be radiated then option is surgical in that case stents not needed. If she refuses surgery then only Palliative chemo and stenting - Talking to her own oncologist today for transfer of care. XRT also not done here and pt refuses surgery, wants chem - Pain control - c/w Ruiz - CK labs - Ambulate Problems: Subjective 24 Hr Interval Summary Free Text/Dictation Denies any complains Urine draining well on ruiz Pt wants to go to her own oncologist as is refusing surgery here and wants chemo Exam/Review of Systems Vital Signs Vitals Vital Signs Date Time Temp Pulse Resp B/P Pulse Ox O2 Delivery O2 Flow Rate FiO2 03/24/17 14:28 97.6 77 18 114/72 100 Intake and Output 03/23/17 03/23/17 03/24/17 15:00 23:00 07:00 Intake Total 2640 ml 970 ml Output Total 2150 ml 1300 ml Balance 490 ml -330 ml Results Gen:Awake,alert Neck:supple CVS:Regular rate and rthym Lungs:clear Abdomen: distended +bs Ext no edema Result Diagram: 03/23/1751203/23/17 0513 Medications Medications Current Medications Ibuprofen 200 mg 200 mg Q6H PRN PO PAIN; Start 03/19/17 at 15:30 Dextrose/Sodium Chloride (D5-1/2ns) 1,000 ml @ 60 mls/hr [id number] IV Last administered on 03/24/17 00:25; Admin Dose 60 MLS/HR; Start 03/19/17 at 15:19 Ondansetron HCl (Zofran Inj) 4 mg Q6H PRN IV NAUSEA AND/OR VOMITING; Start at 15:30 Acetaminophen (Tylenol Tab) 650 mg Q6H PRN PO PAIN LEVEL 1-3 OR FEVER Last administered on 03/19/17 17:49; Admin Dose 650 MG; Start 03/19/17 at 15:30 Acetaminophen (Tylenol Supp) 650 mg Q6H PRN [place] PAIN LEVEL 1-3 OR FEVER; Start 03/19/17 at 15:30 Morphine Sulfate (morphine) 2 mg Q4H PRN IV SEVERE PAIN LEVEL 7-10 Last administered on 03/22/17 19:35; Admin Dose 2 MG; Start 03/19/17 at 15:30 Docusate Sodium (Colace) 100 mg Q12H PRN PO CONSTIPATION; Start 03/19/17 at 15: 30 Magnesium Hydroxide (Milk Of Mag) 30 ml DAILY PRN PO CONSTIPATION; Start at 15:30 Bisacodyl (Dulcolax) 5 mg DAILY PRN PO CONSTIPATION; Start 03/19/17 at 15:30 Zolpidem Tartrate (Ambien) 5 mg QHS PRN PO SLEEP; Start 03/19/17 at 15:30 Pantoprazole (Protonix Tab) 40 mg DAILY@06 PO Last administered on 03/24/17 05 :51; Admin Dose 40 MG; Start 03/21/17 at 06:00 SOPHIA PALOMO MD Mar 24, 2017 16:11
[2017-03-24 19:34] VITALS: BP 123/62; RESP 20
--- NOTE | 2017-03-24 21:55 | PN ---
Date/Time of Note Date/Time of Note DATE: 03/24/17 TIME: 21:45 Assessment/Plan VTE Prophylaxis VTE Prophylaxis Intervention: LMWH Lines/Catheters IV Catheter Type (from Nrs): Peripheral IV Urinary Cath still in place: Yes Reason Cath still needed: urinary retention Assessment/Plan Chief Complaint/Hosp Course Probable recurrent cervical cancer Problems: Assessment/Plan A- refuses FNA and awaiting transfer P- will see PRN Subjective 24 Hr Interval Summary Free Text/Dictation Feels about the same. Indicates that surgery is not an option even if RT cannot be done and would choose palliative chemo. Also; biopsy recently done 2- 3 weeks ago only shows RACHEL III and her [facility] extrapolated the mass to be a recurrent cervical cancer. Also, await transfer to [facility] for Rx. I will see prn Exam/Review of Systems Vital Signs Vitals Vital Signs Date Time Temp Pulse Resp B/P Pulse Ox O2 Delivery O2 Flow Rate FiO2 03/24/17 19:34 97.5 82 20 123/62 100 Intake and Output 03/23/17 03/23/17 03/24/17 15:00 23:00 07:00 Intake Total 2640 ml 970 ml Output Total 2150 ml 1300 ml Balance 490 ml -330 ml Results Result Diagram: 03/23/1713 03/23/17512 Medications Medications Current Medications Ibuprofen 200 mg 200 mg Q6H PRN PO PAIN; Start 03/19/17 at 15:30 Dextrose/Sodium Chloride (D5-1/2ns) 1,000 ml @ 60 mls/hr [id number] IV Last administered on 03/24/17 16:00; Admin Dose 60 MLS/HR; Start 03/19/17 at 15:19 Ondansetron HCl (Zofran Inj) 4 mg Q6H PRN IV NAUSEA AND/OR VOMITING; Start at 15:30 Acetaminophen (Tylenol Tab) 650 mg Q6H PRN PO PAIN LEVEL 1-3 OR FEVER Last administered on 03/19/17 17:49; Admin Dose 650 MG; Start 03/19/17 at 15:30 Acetaminophen (Tylenol Supp) 650 mg Q6H PRN [place] PAIN LEVEL 1-3 OR FEVER; Start 03/19/17 at 15:30 Morphine Sulfate (morphine) 2 mg Q4H PRN IV SEVERE PAIN LEVEL 7-10 Last administered on 03/22/17 19:35; Admin Dose 2 MG; Start 03/19/17 at 15:30 Docusate Sodium (Colace) 100 mg Q12H PRN PO CONSTIPATION; Start 03/19/17 at 15: 30 Magnesium Hydroxide (Milk Of Mag) 30 ml DAILY PRN PO CONSTIPATION; Start at 15:30 Bisacodyl (Dulcolax) 5 mg DAILY PRN PO CONSTIPATION; Start 03/19/17 at 15:30 Zolpidem Tartrate (Ambien) 5 mg QHS PRN PO SLEEP; Start 03/19/17 at 15:30 Pantoprazole (Protonix Tab) 40 mg DAILY@06 PO Last administered on 03/24/17 05 :51; Admin Dose 40 MG; Start 03/21/17 at 06:00 LUZ DEE MD Mar 24, 2017 21:55
[2017-03-24] MEDS: morphine 2 MG INJ IV PRN (22:15)
[2017-03-25 02:03] VITALS: BP 108/66; RESP 20
[2017-03-25] MEDS: PANTOPRAZOLE (EC) 40 MG TAB PO SCH (05:07)
[2017-03-25 07:21] VITALS: BP 99/54; RESP 18
[2017-03-25] MEDS: DEXTROSE 5%-0.45% NACL 1,000 ML IV SCH (09:44)
--- NOTE | 2017-03-25 12:53 | RADRPT ---
PROCEDURE: Renal US. CLINICAL INDICATION: Follow-up hydronephrosis TECHNIQUE: Multiple sonographic images of the kidneys were obtained. COMPARISON: CT 03/19/2017 FINDINGS: The kidneys are well visualized. The right kidney measures 12.0 cm. The left kidney measures 12.8 cm . Normal renal cortical echogenicity. No evidence of shadowing renal calculi. Severe right hydronep hrosis and hydroureter. Mild left hydronephrosis. Bladder is decompressed with Sheets catheter. IMPRESSION: Severe right hydronephrosis and hydroureter. Mild left hydronephrosis. RPTAT:AAJJ Physician Praveen Date Time Electronically viewed and signed by Physician Praveen on 03/25/2017 12:52 /
[2017-03-25 14:13] VITALS: BP 116/64; RESP 18
--- NOTE | 2017-03-25 14:18 | CONS ---
Date/Time of Note Date/Time of Note DATE: 03/25/17 TIME: 14:17 Assessment/Plan Assessment/Plan Chief Complaint/Hosp Course SUBJECTIVE DATA: Patient is alert denies pain looks comfortable, no fevers, no nausea, vomiting or diarrhea. She has some blood in her urine on and off, no dysuria Renal ultrasound revealed severe right hydronephrosis and hydroureter. Mild left hydronephrosis. MICROBIOLOGY: Blood and urine culture negative. Stool for C. diff negative. DIAGNOSTICS: Chest x-ray on admission revealed no evidence for active cardiopulmonary disease. PHYSICAL EXAMINATION: GENERAL: Well developed, middle-aged woman who is awake, in no distress. CHEST: Chest rise symmetrical. Breath sounds clear. HEART: S1, S2. ABDOMEN: Soft, bowel sounds present. EXTREMITIES: Extremities without cyanosis. ASSESSMENT: 1. Systemic inflammatory response syndrome with resolving leukocytosis possibly secondary to pelvic mass. 2. Severe right and mild left-sided hydroureteronephrosis secondary to obstructive mass. 3. Acute kidney injury on admission, resolving. 4. History of cervical cancer with questionable recurrence, patient is being seen by [facility]. 5. Anemia with rectal bleeding. Most probably from tumor and waiting with the rectosigmoid colon as per Gastroenterology note. PLAN: The patient remains stable, off abx, continue present care, possible transfer to another facility for continuation of care. DW staff/pt Problems: Consultation Date/Type/Reason Admit Date/Time Mar 19, 2017 at 03:32 Type of Consultation: ID Exam/Review of Systems Vital Signs Vitals Vital Signs Date Time Temp Pulse Resp B/P Pulse Ox O2 Delivery O2 Flow Rate FiO2 03/25/17 14:13 98.4 73 18 116/64 98 Intake and Output 03/24/17 03/24/17 03/25/17 15:00 23:00 07:00 Intake Total 1690 ml 2100 ml Output Total 2300 ml 1950 ml Balance -610 ml 150 ml Results Result Diagram: 03/23/17 0513 03/23/17 0513 Medications Medications Current Medications Ibuprofen 200 mg 200 mg Q6H PRN PO PAIN; Start 03/19/17 at 15:30 Dextrose/Sodium Chloride (D5-1/2ns) 1,000 ml @ 60 mls/hr [id number] IV Last administered on 03/25/17t 09:44; Admin Dose 60 MLS/HR; Start 03/19/17 at 15:19 Ondansetron HCl (Zofran Inj) 4 mg Q6H PRN IV NAUSEA AND/OR VOMITING; Start at 15:30 Acetaminophen (Tylenol Tab) 650 mg Q6H PRN PO PAIN LEVEL 1-3 OR FEVER Last administered on 03/19/17 17:49; Admin Dose 650 MG; Start 03/19/17 at 15:30 Acetaminophen (Tylenol Supp) 650 mg Q6H PRN [place] PAIN LEVEL 1-3 OR FEVER; Start 03/19/17 at 15:30 Morphine Sulfate (morphine) 2 mg Q4H PRN IV SEVERE PAIN LEVEL 7-10 Last administered on 03/24/17 22:15; Admin Dose 2 MG; Start 03/19/17 at 15:30 Docusate Sodium (Colace) 100 mg Q12H PRN PO CONSTIPATION; Start 03/19/17 at 15: 30 Magnesium Hydroxide (Milk Of Mag) 30 ml DAILY PRN PO CONSTIPATION; Start at 15:30 Bisacodyl (Dulcolax) 5 mg DAILY PRN PO CONSTIPATION; Start 03/19/17 at 15:30 Zolpidem Tartrate (Ambien) 5 mg QHS PRN PO SLEEP; Start 03/19/17 at 15:30 Pantoprazole (Protonix Tab) 40 mg DAILY@06 PO Last administered on 03/25/17 05 :07; Admin Dose 40 MG; Start 03/21/17 at 06:00 BRYNN GIBSON NP Mar 25, 2017 14:18
--- NOTE | 2017-03-25 15:25 | PN ---
Date/Time of Note Date/Time of Note DATE: 03/25/17 TIME: 15:22 Assessment/Plan VTE Prophylaxis VTE Prophylaxis Intervention: ambulation Lines/Catheters IV Catheter Type (from Nrs): Peripheral IV Urinary Cath still in place: Yes Reason Cath still needed: urinary retention Assessment/Plan Chief Complaint/Hosp Course 36 y/o with 1. Patient has pelvic mass. Issue is to find from previous surgeon if .recurrent cervical cancer and if so determine if she can be treated with RT; in which case ureteral stenting important. versus Recurrent cervical cancer to be managed surgically (less likely) or not a recurrent cervical but instead other lesion to be removed (stenting not needed for either) 2. SIRS w/Tmax 99.3, leukocytosis +Abdominal pain => Improved post empiric ABX 3. Right and mild left-sided hydroureteronephrosis. Per Dr Galloway > she will need bilateral stent placement if she is symptomatic or if there is need for improved creat for chemo 4. Hypokalemia resolved 5. Acute kidney injury Cr, 1.04 no new labs 6. Hyponatremia. resolved 7. Anemia. Recs - Repeat Renal U/S shows today severe rt hydronephrosis and rt hydroureter and mild left hydronephrosis, will talk to Dr Swan for possible intervention here - Recheck BMP - Pain control - c/w Sheets - CK labs - Ambulate Problems: Subjective 24 Hr Interval Summary Free Text/Dictation Pt denies any complains Exam/Review of Systems Vital Signs Vitals Vital Signs Date Time Temp Pulse Resp B/P Pulse Ox O2 Delivery O2 Flow Rate FiO2 03/25/17 14:13 98.4 73 18 116/64 98 Intake and Output 03/24/17 03/24/17 03/25/17 15:00 23:00 07:00 Intake Total 1690 ml 2100 ml Output Total 2300 ml 1950 ml Balance -610 ml 150 ml Exam Gen:Awake,alert Neck:supple CVS:Regular rate and rthym Lungs:clear Abdomen: distended +bs Ext no edema Results Result Diagram: 03/23/1751203/23/17512 Medications Medications Current Medications Ibuprofen 200 mg 200 mg Q6H PRN PO PAIN; Start 03/19/17 at 15:30 Dextrose/Sodium Chloride (D5-1/2ns) 1,000 ml @ 60 mls/hr [id number] IV Last administered on 03/25/17 09:44; Admin Dose 60 MLS/HR; Start 03/19/17 at 15:19 Ondansetron HCl (Zofran Inj) 4 mg Q6H PRN IV NAUSEA AND/OR VOMITING; Start at 15:30 Acetaminophen (Tylenol Tab) 650 mg Q6H PRN PO PAIN LEVEL 1-3 OR FEVER Last administered on 03/19/17 17:49; Admin Dose 650 MG; Start 03/19/17 at 15:30 Acetaminophen (Tylenol Supp) 650 mg Q6H PRN [place] PAIN LEVEL 1-3 OR FEVER; Start 03/19/17 at 15:30 Morphine Sulfate (morphine) 2 mg Q4H PRN IV SEVERE PAIN LEVEL 7-10 Last administered on 03/24/17 22:15; Admin Dose 2 MG; Start 03/19/17 at 15:30 Docusate Sodium (Colace) 100 mg Q12H PRN PO CONSTIPATION; Start 03/19/17 at 15: 30 Magnesium Hydroxide (Milk Of Mag) 30 ml DAILY PRN PO CONSTIPATION; Start at 15:30 Bisacodyl (Dulcolax) 5 mg DAILY PRN PO CONSTIPATION; Start 03/19/17 at 15:30 Zolpidem Tartrate (Ambien) 5 mg QHS PRN PO SLEEP; Start 03/19/17 at 15:30 Pantoprazole (Protonix Tab) 40 mg DAILY@06 PO Last administered on 03/25/17 05 :07; Admin Dose 40 MG; Start 03/21/17 at 06:00 SOPHIA PALOMO MD Mar 25, 2017 15:25
[2017-03-25 17:00] LABS: CALCIUM 9.3 mg/dl (8.4-10.2); CREATININE 1.02 mg/dl (0.44-1.00); POTASSIUM 3.6 mmol/L (3.5-5.1)
--- NOTE | 2017-03-25 20:21 | CONS ---
Date/Time of Note Date/Time of Note DATE: 03/25/17 TIME: 20:03 Assessment/Plan Assessment/Plan Chief Complaint/Hosp Course 36-year-old female with history of cervical cancer status post hysterectomy in May 2016. Presently she has recurrence of tumor in the pelvis and the tumor most likely is strangulating the ureter on the right side more than the left. Tumor may be even invading into the bladder. The patient does have severe right hydroureteronephrosis was a right ureter very tortuous and dilated. She also does have mild left hydronephrosis. I have explained to the patient the cystoscopy and insertion of bilateral JJ stents it may be difficult to do it on the right side if the ureteral orifice is occluded by tumor invasion into the bladder. If I am not able to put the stent on the right side and at the as a matter of fact even on the left side then she will need to have a percutaneous nephrostomy put by the radiologist. If we were able to put the JJ stents I informed her that she needs these removed and replaced every 3 months. She asked me whether she is going to have these for the rest of her life I told her as long as the ureters are obstructed she will need if the tumor shrink and the ureters are no longer obstructed then she will not need them and we will remove them. She understands that she has to keep in touch with us or with any urologist to have the stents removed and replaced every 3 months otherwise they will calcify and they become a problem themselves. Also discussed with her the risks and complications from the stents which include bleeding infection irritation of the bladder and urinary frequency and urgency as well as hematuria. Other alternative would be to put percutaneous nephrostomies which means she will have to have urine back hanging on her side. She did understand all of that and is agreeable to proceed. I will check with the operating room tomorrow and see when we could do it. Problems: Consultation Date/Type/Reason Admit Date/Time Mar 19, 2017 at 03:32 Date of Consultation: Mar 25, 2017 Type of Consultation: urology Reason for Consultation Bilateral hydronephrosis secondary to recurrent cervical carcinoma was possible ureteral encasement by the tumor Hx of Present Illness 36-year-old female underwent hysterectomy for cervical tumor in May 2016 and presently has recurrence of the tumor with bilateral hydronephrosis more severe on the right side and mild on the left side. The patient is going to have chemotherapy and radiation at the [facility] and I was asked to see her to see if I could do a cystoscopy and insert bilateral JJ stents. Constitutional: no complaints Eyes: no complaints ENT: no complaints Respiratory: no complaints Cardiovascular: no complaints Gastrointestinal: blood, diarrhea, pain Genitourinary: other (Patient has an indwelling Sheets catheter since her admission), No dysuria, No hematuria Musculoskeletal: no complaints Skin: no complaints Neurologic: no complaints Endocrine: no complaints Psychological: nl mood/affect, no complaints Past Medical History Medical History: no pertinent history Past Surgical History Past Surgical Hx: other (Hysterectomy for cervical cancer May 2016, 2 C- sections, mini tummy tuck.) Family History Significant Family History: no pertinent family hx Social History Alcohol Use: none Smoking Status: Never smoker Exam/Review of Systems Vital Signs Vitals Vital Signs Date Time Temp Pulse Resp B/P Pulse Ox O2 Delivery O2 Flow Rate FiO2 03/25/17 14:13 98.4 73 18 116/64 98 Intake and Output 03/24/17 03/24/17 03/25/17 15:00 23:00 07:00 Intake Total 1690 ml 2100 ml Output Total 2300 ml 1950 ml Balance -610 ml 150 ml Exam Constitutional: alert, oriented Psych: no complaints Head: normocephalic Eyes: nl conjunctiva ENMT: nl external ears & nose Neck: supple Respiratory: normal air movement Cardiovascular: No edema Gastrointestinal: distended, mass (Lower abdomen in the suprapubic area) Genitourinary - Female: other (Pelvic exam shows a mass behind the bladder and that even could be invading into the bladder and she has pain from this exam) Musculoskeletal: nl extremities to inspection Extremities: No calf tenderness, No edema Results Result Diagram: 03/23/17 0513 03/25/17 1601 Results 24 hrs Laboratory Tests Test 03/25/17 16:01 Sodium Level 141 Potassium Level 3.6 Chloride Level 105 Carbon Dioxide Level 26 Anion Gap 14 Blood Urea Nitrogen 5 L Creatinine 1.02 H Glucose Level 136 Calcium Level 9.3 Imaging Free Text/Dictation CT scan of the abdomen and pelvis: 1. Large ill-defined pelvic mass with free fluid. 2. Severe right and mild left-sided hydroureteronephrosis with markedly ectatic right ureter with obstruction in the distal ureters most likely from mass effect by the pelvic mass. 3. Right ovarian cyst. 4. Diffuse circumferential thickening of the rectosigmoid colon which may be secondarily involved. 5. No CT evidence for appendicitis. Medications Medications Current Medications Ibuprofen (Motrin) 200 mg Q6H PRN PO PAIN; Start 03/19/17 at 15:30 Ondansetron HCl (Zofran Inj) 4 mg Q6H PRN IV NAUSEA AND/OR VOMITING; Start at 15:30 Acetaminophen (Tylenol Tab) 650 mg Q6H PRN PO PAIN LEVEL 1-3 OR FEVER Last administered on 03/19/17 17:49; Admin Dose 650 MG; Start 03/19/17 at 15:30 Acetaminophen (Tylenol Supp) 650 mg Q6H PRN [place] PAIN LEVEL 1-3 OR FEVER; Start 03/19/17 at 15:30 Morphine Sulfate (morphine) 2 mg Q4H PRN IV SEVERE PAIN LEVEL 7-10 Last administered on 03/24/17 22:15; Admin Dose 2 MG; Start 03/19/17 at 15:30 Docusate Sodium (Colace) 100 mg Q12H PRN PO CONSTIPATION; Start 03/19/17 at 15: 30 Magnesium Hydroxide (Milk Of Mag) 30 ml DAILY PRN PO CONSTIPATION; Start at 15:30 Bisacodyl (Dulcolax) 5 mg DAILY PRN PO CONSTIPATION; Start 03/19/17 at 15:30 Zolpidem Tartrate (Ambien) 5 mg QHS PRN PO SLEEP; Start 03/19/17 at 15:30 Pantoprazole (Protonix Tab) 40 mg DAILY@06 PO Last administered on 03/25/17 05 :07; Admin Dose 40 MG; Start 03/21/17 at 06:00 HERBERT ANTOINE MD Mar 25, 2017 20:21
[2017-03-25 20:24] VITALS: BP 129/80; RESP 20
[2017-03-26 01:32] VITALS: BP 122/70; RESP 20
[2017-03-26] MEDS: PANTOPRAZOLE (EC) 40 MG TAB PO SCH (05:17)
[2017-03-26 06:16] LABS: BASOPHILS % 0.3 % (0.0-2.0); EOSINOPHILS # 0.4 10^3/ul (0.0-0.5); EOSINOPHILS % 3.3 % (0.0-7.0); HEMATOCRIT 29.9 % (37.0-47.0); HEMOGLOBIN 9.2 g/dl (12.0-16.0); LYMPHOCYTES # 2.7 10^3/ul (0.8-2.9); LYMPHOCYTES % 23.6 % (15.0-51.0); MEAN CORPUSCULAR HEMOGLOBIN 27.9 pg (29.0-33.0); MEAN CORPUSCULAR HGB CONC 30.8 g/dl (32.0-37.0); MEAN CORPUSCULAR VOLUME 90.6 fl (82.0-101.0); MONOCYTE # 0.8 10^3/ul (0.3-0.9); MONOCYTES % 6.6 % (0.0-11.0); NEUTROPHIL # 7.5 10^3/ul (1.6-7.5); NEUTROPHILS % 65.3 % (39.0-77.0); PLATELET COUNT 471 10^3/UL (140-415); RED CELL DISTRIBUTION WIDTH 13.6 % (11.5-14.5); WHITE BLOOD COUNT 11.5 10^3/ul (4.8-10.8)
[2017-03-26 07:01] LABS: CALCIUM 9.6 mg/dl (8.4-10.2); POTASSIUM 4.3 mmol/L (3.5-5.1)
[2017-03-26 08:09] VITALS: BP 116/75; RESP 18
--- NOTE | 2017-03-26 08:47 | PN ---
Date/Time of Note Date/Time of Note DATE: 03/26/17 TIME: 08:44 Assessment/Plan VTE Prophylaxis VTE Prophylaxis Intervention: ambulation Lines/Catheters IV [facility] [place]ine [facility] Urinary Cath still in place: Yes Reason Cath still needed: urinary retention Assessment/Plan Chief Complaint/Hosp Course 36-year-old female with history of cervical cancer status post hysterectomy in May 2016. Presently she has recurrence of tumor in the pelvis and the tumor most likely is strangulating the ureter on the right side more than the left. Tumor may be even invading into the bladder. The patient does have severe right hydroureteronephrosis was a right ureter very tortuous and dilated. She also does have mild left hydronephrosis. I have explained to the patient the cystoscopy and insertion of bilateral JJ stents it may be difficult to do it on the right side if the ureteral orifice is occluded by tumor invasion into the bladder. If I am not able to put the stent on the right side and at the as a matter of fact even on the left side then she will need to have a percutaneous nephrostomy put by the radiologist. If we were able to put the JJ stents I informed her that she needs these removed and replaced every 3 months. She asked me whether she is going to have these for the rest of her life I told her as long as the ureters are obstructed she will need if the tumor shrink and the ureters are no longer obstructed then she will not need them and we will remove them. She understands that she has to keep in touch with us or with any urologist to have the stents removed and replaced every 3 months otherwise they will calcify and they become a problem themselves. Also discussed with her the risks and complications from the stents which include bleeding infection irritation of the bladder and urinary frequency and urgency as well as hematuria. Other alternative would be to put percutaneous nephrostomies which means she will have to have urine back hanging on her side. She did understand all of that and is agreeable to proceed. I will check with the operating room tomorrow and see when we could do it. I did schedule the patient to do cystoscopy and insertion of bilateral JJ stent tomorrow morning at 9 AM however when I came and talked to the patient it seems he decided during the night that she does not want any surgery. I had the nurse Nori witness the patient's decision I explained to the patient the damage that will occur to her kidneys should she not have them drained was a JJ stents and that could compromise the chemotherapy that she will be needing for her tumor she did understand all of that and still does not want to have the cystoscopy and insertion of the JJ stents. Therefore she could be discharged and she could follow-up with her medical doctors and oncologist as she plants Problems: Exam/Review of Systems Vital Signs Vitals Vital Signs Date Time Temp Pulse Resp B/P Pulse Ox O2 Delivery O2 Flow Rate FiO2 03/26/17 08:09 98.0 82 18 116/75 96 Intake and Output 03/25/17 03/25/17 03/26/17 15:00 23:00 07:00 Intake Total 220 ml 1680 ml Output Total 1800 ml Balance 220 ml -120 ml Results Result Diagram: 03/26/17 0529 03/26/17 0529 Results 24 hrs Laboratory Tests Test 03/25/17 16:01 03/26/17 05:29 Sodium Level 141 141 Potassium Level 3.6 4.3 Chloride Level 105 105 Carbon Dioxide Level 26 28 Anion Gap 14 12 Blood Urea Nitrogen 5 L 8 Creatinine 1.02 H 1.00 Glucose Level 136 85 # Calcium Level 9.3 9.6 White Blood Count 11.5 H Red Blood Count 3.30 L Hemoglobin 9.2 L Hematocrit 29.9 L Mean Corpuscular Volume 90.6 Mean Corpuscular Hemoglobin 27.9 L Mean Corpuscular Hemoglobin Concent 30.8 L Red Cell Distribution Width 13.6 Platelet Count 471 H Mean Platelet Volume 9.0 Neutrophils % 65.3 Lymphocytes % 23.6 Monocytes % 6.6 Eosinophils % 3.3 Basophils % 0.3 Nucleated Red Blood Cells % 0.0 Neutrophils # 7.5 Lymphocytes # 2.7 Monocytes # 0.8 Eosinophils # 0.4 Basophils # 0.0 Nucleated Red Blood Cells # 0.0 Medications Medications Current Medications Ibuprofen (Motrin) 200 mg Q6H PRN PO PAIN; Start 03/19/17 at 15:30 Ondansetron HCl (Zofran Inj) 4 mg Q6H PRN IV NAUSEA AND/OR VOMITING; Start at 15:30 Acetaminophen (Tylenol Tab) 650 mg Q6H PRN PO PAIN LEVEL 1-3 OR FEVER Last administered on 03/19/17t 17:49; Admin Dose 650 MG; Start 03/19/17 at 15:30 Acetaminophen (Tylenol Supp) 650 mg Q6H PRN [place] PAIN LEVEL 1-3 OR FEVER; Start 03/19/17 at 15:30 Morphine Sulfate (morphine) 2 mg Q4H PRN IV SEVERE PAIN LEVEL 7-10 Last administered on 03/24/17 22:15; Admin Dose 2 MG; Start 03/19/17 at 15:30 Docusate Sodium (Colace) 100 mg Q12H PRN PO CONSTIPATION; Start 03/19/17 at 15: 30 Magnesium Hydroxide (Milk Of Mag) 30 ml DAILY PRN PO CONSTIPATION; Start at 15:30 Bisacodyl (Dulcolax) 5 mg DAILY PRN PO CONSTIPATION; Start 03/19/17 at 15:30 Zolpidem Tartrate (Ambien) 5 mg QHS PRN PO SLEEP; Start 03/19/17 at 15:30 Pantoprazole (Protonix Tab) 40 mg DAILY@06 PO Last administered on 03/26/17 05 :17; Admin Dose 40 MG; Start 03/21/17 at 06:00 HERBERT ANTOINE MD Mar 26, 2017 08:47
--- NOTE | 2017-03-26 12:59 | PN ---
ELOISATHOMASIESHATonyAZUL 03/26/17 1259: Date/Time of Note Date/Time of Note DATE: 03/26/17 TIME: 12:56 Assessment/Plan VTE Prophylaxis VTE Prophylaxis Intervention: ambulation Lines/Catheters IV Catheter Type (from Nrs): Saline Lock Urinary Cath still in place: Yes Reason Cath still needed: urinary retention Assessment/Plan Chief Complaint/Hosp Course 1. Patient has malignant pelvic mass. 2. Leukocytosis, resolving, off a/b. 3. Right and mild left-sided hydroureteronephrosis. 4. Hypokalemia. 5. Acute kidney injury. 6. Hyponatremia, resolved. 7. Anemia. 8. Abdominal pain 9. CT scan is positive for :1). Large ill-defined pelvic mass with free fluid. 2). Severe right and mild left-sided hydroureteronephrosis with markedly ectatic right ureter with obstruction in the distal ureters most likely from mass effect by the pelvic mass. 3). Right ovarian cyst. 4). Diffuse circumferential thickening of the rectosigmoid colon which may be secondarily involved. 5). No CT evidence for appendicitis. Problems: Assessment/Plan 1. Pt does not agree for the cystoscopy planned by dr Oh 2. chemotherapy pending with dr Arroyo 3. Spoke to her explaining the prognosis one more time 4. Pain control 5. electrolytes are balanced Exam/Review of Systems Vital Signs Vitals Vital Signs Date Time Temp Pulse Resp B/P Pulse Ox O2 Delivery O2 Flow Rate FiO2 03/26/17 08:09 98.0 82 18 116/75 96 Intake and Output 03/25/17 03/25/17 03/26/17 14:59 22:59 06:59 Intake Total 220 ml 1680 ml Output Total 1800 ml Balance 220 ml -120 ml Results Result Diagram: 03/26/17 0529 03/26/17 0529 Results 24 hrs Laboratory Tests Test 03/25/17 16:01 03/26/17 05:29 Sodium Level 141 141 Potassium Level 3.6 4.3 Chloride Level 105 105 Carbon Dioxide Level 26 28 Anion Gap 14 12 Blood Urea Nitrogen 5 L 8 Creatinine 1.02 H 1.00 Glucose Level 136 85 # Calcium Level 9.3 9.6 White Blood Count 11.5 H Red Blood Count 3.30 L Hemoglobin 9.2 L Hematocrit 29.9 L Mean Corpuscular Volume 90.6 Mean Corpuscular Hemoglobin 27.9 L Mean Corpuscular Hemoglobin Concent 30.8 L Red Cell Distribution Width 13.6 Platelet Count 471 H Mean Platelet Volume 9.0 Neutrophils % 65.3 Lymphocytes % 23.6 Monocytes % 6.6 Eosinophils % 3.3 Basophils % 0.3 Nucleated Red Blood Cells % 0.0 Neutrophils # 7.5 Lymphocytes # 2.7 Monocytes # 0.8 Eosinophils # 0.4 Basophils # 0.0 Nucleated Red Blood Cells # 0.0 Medications Medications Current Medications Ibuprofen (Motrin) 200 mg Q6H PRN PO PAIN; Start 03/19/17 at 15:30 Ondansetron HCl (Zofran Inj) 4 mg Q6H PRN IV NAUSEA AND/OR VOMITING; Start at 15:30 Acetaminophen (Tylenol Tab) 650 mg Q6H PRN PO PAIN LEVEL 1-3 OR FEVER Last administered on 03/19/17 17:49; Admin Dose 650 MG; Start 03/19/17 at 15:30 Acetaminophen (Tylenol Supp) 650 mg Q6H PRN DE PAIN LEVEL 1-3 OR FEVER; Start 03/19/17 at 15:30 Morphine Sulfate (morphine) 2 mg Q4H PRN IV SEVERE PAIN LEVEL 7-10 Last administered on 03/24/17 22:15; Admin Dose 2 MG; Start 03/19/17 at 15:30 Docusate Sodium (Colace) 100 mg Q12H PRN PO CONSTIPATION; Start 03/19/17 at 15: 30 Magnesium Hydroxide (Milk Of Mag) 30 ml DAILY PRN PO CONSTIPATION; Start at 15:30 Bisacodyl (Dulcolax) 5 mg DAILY PRN PO CONSTIPATION; Start 03/19/17 at 15:30 Zolpidem Tartrate (Ambien) 5 mg QHS PRN PO SLEEP; Start 03/19/17 at 15:30 Pantoprazole (Protonix Tab) 40 mg DAILY@06 PO Last administered on 03/26/17 05 :17; Admin Dose 40 MG; Start 03/21/17 at 06:00 SOPHIA PALOMO MD 03/26/17 1553: Assessment/Plan Assessment/Plan Chief Complaint/Hosp Course Spoke to patient in detail in about needing the ureteral stents as we had callled Jayant Rachel for 2nd opnion as per Insurance [facility] however pt said that she wants to go to her oncologist in [place] and dont want any surgery. I told her that when i spoke to Dr Pruitt 2 days ago he had told to get ureteral stents placed her , Explain to her need of doing stents but she would not agree. We are arranging for her to talk to her Oncologist Dr Pruitt today so that he can try to convince her decision Problems: Exam/Review of Systems Results Result Diagram: 03/26/17 0529 03/26/17 0529 AZUL HINDS Mar 26, 2017 12:59 SOPHIA PALOMO MD Mar 26, 2017 15:53
[2017-03-26 14:00] VITALS: BP 119/74; RESP 18
[2017-03-26 19:19] VITALS: BP 127/81; RESP 20
[2017-03-27 02:22] VITALS: BP 110/63; RESP 20
[2017-03-27] MEDS: PANTOPRAZOLE (EC) 40 MG TAB PO SCH (06:22)
[2017-03-27 07:44] VITALS: BP 113/72; RESP 18
== END 2017-03-27 11:35 | disposition left against medical advice (07) | DRG 755 ==
LOC: E/R 20:28 → MS2 03-19 03:32
PROVIDERS: ADMIT Internal Medicine Nephrology; ATTEND Internal Medicine Nephrology
DX: C53.9 Malignant neoplasm of cervix uteri, unspecified (principal); N17.9 Acute kidney failure, unspecified; R65.10 Systemic inflammatory response syndrome (SIRS) of non-infectious origin without acute organ dysfunction; E87.1 Hypo-osmolality and hyponatremia; N13.1 Hydronephrosis with ureteral stricture, not elsewhere classified; N39.0 Urinary tract infection, site not specified; K62.5 Hemorrhage of anus and rectum; D63.0 Anemia in neoplastic disease; E87.6 Hypokalemia; N83.201 Unspecified ovarian cyst, right side; K59.00 Constipation, unspecified
CPT/HCPCS: 36415; 71010; 74176; 76775; 80048; 80053; 81003; 82270; 83605; 83690; 85025; 85610; 85730; 86304; 87040; 87075; 87086; 93005; 96374; 96375; 96376; C9113; J0696; J1170; J2270; J2405; J2543; J7030; J7042

== ENCOUNTER 2017-07-10 14:49 | Emergency (ER) | END 2017-07-10 18:20 | disposition home or self-care (01) ==

== ENCOUNTER 2017-09-02 04:33 | Inpatient (IN) | END 2017-09-07 15:45 | disposition home or self-care (01) | DRG 690 ==

== ENCOUNTER 2017-10-08 14:44 | Emergency (ER) | END 2017-10-08 17:37 | disposition home or self-care (01) ==

== ENCOUNTER 2018-02-22 02:25 | Emergency (ER) | END 2018-02-22 06:00 | disposition home or self-care (01) ==

== ENCOUNTER 2018-03-28 22:18 | Emergency (ER) | END 2018-03-29 01:48 | disposition home or self-care (01) ==

== ENCOUNTER 2018-04-07 21:53 | Emergency (ER) | END 2018-04-08 03:39 | disposition home or self-care (01) ==

== ENCOUNTER 2018-07-12 10:09 | Emergency (ER) | payer OTHER ==
[~2018-07-12] VITALS: Ht 160 cm; Wt 77.3 kg
[~2018-07-12 10:09] MED LIST changes: +CIPR-193 PO; +DOCU-159 PO; -FLUC150T41 PO; +HYDR-4011 PO; +NITR-58 PO; +ONDA4TAB13 PO; -ONDA4TAB8 PO; -PEG1POWD PO; -PERCOCET PO; -POLY17PO6 PO
[2018-07-12 10:14] VITALS: BP 118/75; PULSE 79; RESP 18; Ht 160 cm; Wt 77.3 kg
[2018-07-12] MEDS ORDERED: IBUP-1542 PO (10:59)
[2018-07-12] MEDS ORDERED: IBUPROFEN 800 MG TAB PO ONE (11:00)
--- NOTE | 2018-07-12 11:17 | ERD ---
ER Documentation Chief Complaint Chief Complaint right wrist pain x 2 weeks ago HPI This is a 38-year-old female with a history of cervical cancer which she was treated with chemotherapy who presents to ED with complaints of right wrist pain times 2 weeks. 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 Denies fall or injury to account for pain. Denies tingling, numbness, lack sensation, fever, chills and other symptoms. ROS All systems reviewed and are negative except as per history of present illness. Medications Home Meds Active Scripts Ibuprofen* (Motrin*) 600 Mg Tab, 600 MG PO Q6, #30 TAB Prov:ADRIA VARGHESE PA-C 07/12/18 Ciprofloxacin Hcl* (Ciprofloxacin Hcl*) 500 Mg Tablet, 500 MG PO BID for 7 Days, TAB Prov:LALITHA PEREZ PA-C 03/29/18 Hydrocodone/Acetaminophen ([place] 5-325 Tablet) 1 Each Tablet, 1 EACH PO BID for 10 Days, #20 TAB Prov:YINKA POLANCO MD 10/08/17 Nitrofurantoin Monohyd Macrocr* (Macrobid*) 100 Mg Capsr, 100 MG PO BID for 14 Days, CAP Prov:YINKA POLANCO MD 10/08/17 Ondansetron Hcl* (Zofran*) 4 Mg Tab, 4 MG PO Q4H PRN for NAUSEA AND OR VOMITING for 30 Days, TAB Prov:SOPHIA PALOMO MD 09/07/17 Ciprofloxacin Hcl* (Ciprofloxacin Hcl*) 250 Mg Tablet, 250 MG PO BID for 5 Days, #10 TAB Prov:SOPHIA PALOMO MD 09/07/17 Reported Medications Docusate Sodium* (Docusate Sodium*) 100 Mg Capsule, 100 MG PO BID, #60 CAP 07/10/17 Allergies Allergies: Coded Allergies: No Known Allergies (Unverified Allergy, Unknown, 07/12/18) PMhx/Soc History of Surgery: Yes (Abdominal hysterectomy,isa.ureter stent placement) Anesthesia Reaction: No Hx Neurological Disorder: No Hx Respiratory Disorders: No Hx Cardiac Disorders: No Hx Psychiatric Problems: No Hx Miscellaneous Medical Probl: Yes (Hx of cervical cancer) Hx Alcohol Use: No Hx Substance Use: No Hx Tobacco Use: No Smoking Status: Never smoker FmHx Family History: No diabetes Physical Exam Vitals Vital Signs Date Temp Pulse Resp B/P (MAP) Pulse Ox O2 O2 Flow FiO2 Time Delivery Rate 07/12/18 96.9 79 18 118/75 100 10:14 (89) Physical Exam Const: No acute distress Head: Atraumatic Eyes: Normal Conjunctiva ENT: Normal External Ears, Nose and Mouth. Neck: Full range of motion. No meningismus. Resp: Clear to auscultation bilaterally Cardio: Regular rate and rhythm, no murmurs Ext: No cyanosis, or edema Upper Extremity - RIGHT: Skin: No laceration, or evidence of external trauma Compartments: Soft Motor: Full active range of motion shoulder/elbow/wrist/hand Sensation: Intact shoulder/pinky/middle finger/thumb web space Bones: Moderate tenderness to palpation along the right posterior lateral wrist, nontender humerus/elbow/forearm//hand Snuffbox: Nontender Joints: No effusion Pulses/Perfusion: 2+ radial, Capillary refill < 2 seconds CAPRI test positive Neur: Awake and alert Psych: Normal Mood and Affect Results 24 hrs Current Medications Medications Dose Sig/Yuli Start Time Status Last (Trade) Ordered Route PRN Stop Time Admin Dose Reason Admin Ibuprofen 800 mg ONCE ONCE 07/12/18 DC 07/12/18 (Motrin) PO 11:00 07/12/18 11:13 11:01 Procedures/MDM ER COURSE: The patient was given ibuprofen The medication was well tolerated and the patient reports improvement in symptoms. The patient was stable throughout ED course. I kept the patient and/or family informed of laboratory and diagnostic imaging results throughout the emergency room course. The patient was promptly evaluated and a treatment plan was devised based on H&P and other data. This plan was discussed with the patient who agreed and had no further questions or concerns prior to discharge. MEDICAL DECISION MAKING: This is a 38-year-old female presents ED with right wrist pain times 2 weeks. Patient has a positive CAPRI TEST. This is likely de Quervain's tenosynovitis. Patient was given a wrist Velcro support to wear and instructed to take ibuprofen to reduce inflammation. Advised patient follow-up with document processing specialist if pain continues to persist. History and physical examination other data not consistent with emergent processes including but not limited to fracture, dislocation, tendon rupture, ischemia, neurovascular injury, compartment syndrome, septic joint, avascular necrosis, osteomyelitis, necrotizing fasciitis, septic joint, septic arthritis, or other emergent conditions. Patient's vitals are stable and can be managed outpatient with close follow-up. Advised patient to follow-up with primary care in the next 48 hours. Return to ED with any worsening symptoms. DISPOSITION PLAN: We discussed follow up with the patient's primary care doctor within 24 to 48 hours. Patient counseled regarding my diagnostic impression and care plan. Prior to discharge all questions answered. Pt agrees with treatment plan and understands strict return precautions. Precautionary instructions provided including instructions to return to the ER if not improving or for any worsening or changing symptoms or concerns. SPECIALIST FOLLOW UP RECOMMENDED: None Patient has been advised to follow up with primary care in 1-2 days. Disclaimer: Inadvertent spelling and grammatical errors are likely due to EHR/dictation software use and do not reflect on the overall quality of patient care. Also, please note that the electronic time recorded on this note does not necessarily reflect the actual time of the patient encounter. Departure Diagnosis: Primary Impression: Tenosynovitis, de Quervain Condition: Stable Patient Instructions: What Is De Quervain Tenosynovitis? Referrals: JOSE LUIS YEAGER MD,MARLEY BATISTA,GERMANIA DINH,ANTHONY MAN,SAMMY CABAN,[facility] () Usted se dias hecho un examen mdico de control que le indica que no est en wesly condicin que requiera tratamiento urgente en el Departamento de Emergencia. Un estudio ms profundo y el tratamiento de boykin condicin pueden esperar sin ningn riesgo hasta que usted sea atendida/o en el consultorio de boykin mdico o wesly clnica. Es responsabilidad suya arreglar wesly elise para el seguimiento del barbara. MANEJO DE CONDICIONES NO URGENTES EN EL FUTURO 1) Si usted tiene un mdico de atencin primaria: Usted debera llamar a boykin mdico de atencin primaria antes de venir al departamento de emergencia. Despus de las horas de consultorio, boykin doctor o boykin asociado/a est disponible por telfono. El mdico o enfermero de karen en el servicio telefnico puede asesorarle por naeem medio para atender el problema, o barbara contrario se puede programar wesly elise. 2) Si usted no tiene un mdico de atencin primaria: Llame al mdico o clnica de referencia que aparece abajo dirk las horas de consultorio para hacer wesly elise para que le vean. CLINICAS: [facility] [phone] [facility] [phone] [facility] [phone] [place] [phone] [place] [address] [phone] [place] [phone] Additional Instructions: Paciente aconseja volver a Departamento de urgencias inmediatamente para sntomas nuevos o que empeoran . Paciente aconseja posteriores con el PCP en 1-2 guallpa . Paciente verbaliza la comprehensin y est de acuerdo con el tratamiento y el curso de accin. Si el paciente no tiene ninguna de atencin primaria pueden seguir con [facility] [address] [place] [address] o [facility] + [address] [address] ADRIA VARGHESE PA-C Jul 12, 2018 11:17
== END 2018-07-12 11:46 | disposition home or self-care (01) ==
LOC: FTE 10:09
DX: M65.4 Radial styloid tenosynovitis [de Quervain] (principal); Z85.41 Personal history of malignant neoplasm of cervix uteri
CPT/HCPCS: 29125; 29515; Z7502; Z7610

== ENCOUNTER 2018-09-26 12:08 | Emergency (ER) | payer SELFPAY ==
[~2018-09-26 12:08] MED LIST changes: +IBUP-1542 PO
== END 2018-09-26 15:18 | disposition left against medical advice (07) ==
LOC: E/R 12:08
DX: Z53.21 Procedure and treatment not carried out due to patient leaving prior to being seen by health care provider (principal)

== ENCOUNTER 2018-11-06 11:07 | Emergency (ER) | payer OTHER ==
[~2018-11-06] VITALS: Wt 80.4 kg
[2018-11-06 11:16] VITALS: BP 114/64; PULSE 83; RESP 18
[2018-11-06] MEDS ORDERED: PROM5SYR2 PO (11:59)
--- NOTE | 2018-11-06 11:59 | ERD ---
ER Documentation Chief Complaint Chief Complaint cough,sore throat HPI Is a 38-year-old female presents with 1 week of cough and sore throat. Also admits to fevers at home. Has been taking TheraFlu. No nausea or vomiting or diarrhea. No hemoptysis or unplanned weight loss. Her daughter is here with similar symptoms. ROS All systems reviewed and are negative except as per history of present illness. Medications Home Meds Active Scripts Ibuprofen* (Motrin*) 600 Mg Tab, 600 MG PO Q6, #30 TAB Prov:ADRIA VARGHEES PA-C 07/12/18 Ciprofloxacin Hcl* (Ciprofloxacin Hcl*) 500 Mg Tablet, 500 MG PO BID for 7 Days, TAB Prov:LALITHA PEREZ PA-C 03/29/18 Hydrocodone/Acetaminophen ([place] 5-325 Tablet) 1 Each Tablet, 1 EACH PO BID for 10 Days, #20 TAB Prov:YINKA POLANCO MD 10/08/17 Nitrofurantoin Monohyd Macrocr* (Macrobid*) 100 Mg Capsr, 100 MG PO BID for 14 Days, CAP Prov:YINKA POLANCO MD 10/08/17 Ondansetron Hcl* (Zofran*) 4 Mg Tab, 4 MG PO Q4H PRN for NAUSEA AND OR VOMITING for 30 Days, TAB Prov:SOPHIA PALOMO MD 09/07/17 Ciprofloxacin Hcl* (Ciprofloxacin Hcl*) 250 Mg Tablet, 250 MG PO BID for 5 Days, #10 TAB Prov:SOPHIA PALOMO MD 09/07/17 Reported Medications Docusate Sodium* (Docusate Sodium*) 100 Mg Capsule, 100 MG PO BID, #60 CAP 07/10/17 Allergies Allergies: Coded Allergies: No Known Allergies (Unverified Allergy, Unknown, 07/12/18) PMhx/Soc History of Surgery: Yes (Abdominal hysterectomy,isa.ureter stent placement) Anesthesia Reaction: No Hx Neurological Disorder: No Hx Respiratory Disorders: No Hx Cardiac Disorders: No Hx Psychiatric Problems: No Hx Miscellaneous Medical Probl: Yes (Hx of cervical cancer) Hx Alcohol Use: No Hx Substance Use: No Hx Tobacco Use: No FmHx Family History: No diabetes Physical Exam Vitals Vital Signs Date Temp Pulse Resp B/P (MAP) Pulse Ox O2 O2 Flow FiO2 Time Delivery Rate 11/06/18 99.0 83 18 114/64 99 11:16 (81) Physical Exam Const: No acute distress Head: Atraumatic Eyes: Normal Conjunctiva ENT: Normal External Ears, Nose and Mouth. Neck: Full range of motion. No meningismus. Resp: Clear to auscultation bilaterally Cardio: Regular rate and rhythm, no murmurs Procedures/MDM s an otherwise healthy, well appearing patient presenting with uncomplicated URI symptoms, likely viral in etiology. Patient is non-toxic and well hydrated. I have low suspicion for pneumonia or significant bacterial disease. Patient will be treated with outpatient supportive care; no indications for antibiotics at this time. Discharge instructions have included return precautions and close follow up with PMD. Departure Diagnosis: Primary Impression: Upper respiratory infection Condition: Stable NEL LOCKHART PA-C November 06, 2018 11:58
[2018-11-06] MEDS ORDERED: DEXAMETHASONE 10 MG/ML 1 ML INJ PO ONE (12:00)
== END 2018-11-06 12:25 | disposition home or self-care (01) ==
LOC: FTE 11:07
DX: J06.9 Acute upper respiratory infection, unspecified (principal)
CPT/HCPCS: J1100; Z7502; 99283